=== PATIENT | female | born 1950 | race American Indian/Alaskan Native ===

== ENCOUNTER 2019-10-02 15:01 | Inpatient (IN) | payer MEDICARE ==
[2019-10-02] MEDS ORDERED: SODIUM CHLORIDE 0.9% 1000 ML 1,000 ML IV ONE (15:19)
--- NOTE | 2019-10-02 15:19 | Emergency Department Report ---
ED CPR HPI - General Stated Complaint: CARDIAC ARREST Time Seen by Provider: 10/02/19 15:14 Source: EMS Mode of arrival: Stretcher Limitations: Altered Mental Status, Physical Limitation - History of Present Illness Initial Comments: Patient is a 69-year-old female that presents emergency room in full cardiac arrest. Patient was at her vascular surgeon's office and was having a procedure done and was given fentanyl and Versed and went asystole. Patient was intubated at the vascular lab and brought to the ER via EMS. Chest compressions being done by EMS. MD Complaint: stopped breathing -: minute(s) Place: other Bystander CPR Performed: Yes Shock Advised: No Initial Findings in the Field: unresponsive, no respirations, no pulse ROSC in the Field: No Associated Injuries: No Treatments Prior to Arrival: intubation, BMV, chest compressions, epinephrine mgs # - Related Data Allergies Allergy/AdvReac Type Severity Reaction Status Date / Time Unable to Assess Allergy Unverified 10/02/19 15:47 ED Review of Systems ROS: Stated complaint: CARDIAC ARREST Other details as noted in HPI Comment: Unobtainable due to pts medical conditions ED Past Medical Hx - Past Medical History Previous Medical History?: Yes Hx Hypertension: Yes Hx Heart Attack/AMI: Yes Hx Diabetes: Yes - Surgical History Past Surgical History?: No - Family History Family history: no significant - Social History Smoking Status: Never Smoker Substance Use Type: None ED Physical Exam - General Limitations: Altered Mental Status, Physical Limitation General appearance: obtunded - Head Head exam: Present: atraumatic, normocephalic - Eye Eye exam: Present: normal appearance - ENT ENT exam: Present: mucous membranes dry - Neck Neck exam: Present: normal inspection - Respiratory Respiratory exam: Present: other - Cardiovascular Cardiovascular Exam: Present: regular rate - GI/Abdominal GI/Abdominal exam: Present: soft. Absent: distended, tenderness, guarding - Rectal Rectal exam: Present: deferred - Extremities Exam Extremities exam: Present: normal inspection - Back Exam Back exam: Present: normal inspection ( absolutely wanted of them would've) - Neurological Exam Neurological exam: Present: altered - Skin Skin exam: Present: warm, dry, intact, normal color. Absent: rash ED Course Vital Signs 10/02/19 10/02/19 10/02/19 15:37 16:14 16:16 Temperature Pulse Rate 107 H 88 125 H Respiratory 22 Rate Blood Pressure 110/68 70/44 70/43 O2 Sat by Pulse 100 99 96 Oximetry 10/02/19 10/02/19 10/02/19 16:20 16:25 16:30 Temperature Pulse Rate 117 H 99 H 96 H Respiratory 22 22 22 Rate Blood Pressure 153/88 96/56 90/54 O2 Sat by Pulse 96 97 97 Oximetry 10/02/19 10/02/19 10/02/19 16:36 16:40 16:42 Temperature 94.2 F L Pulse Rate 102 H 98 H Respiratory 22 22 Rate Blood Pressure 92/57 94/55 O2 Sat by Pulse 96 97 Oximetry 10/02/19 10/02/19 10/02/19 16:46 16:50 16:55 Temperature Pulse Rate 100 H 100 H 102 H Respiratory 22 22 22 Rate Blood Pressure 95/53 102/56 103/59 O2 Sat by Pulse 97 97 98 Oximetry 10/02/19 10/02/19 10/02/19 17:00 17:05 17:10 Temperature Pulse Rate 103 H 104 H 105 H Respiratory 22 22 22 Rate Blood Pressure 109/59 111/60 112/60 O2 Sat by Pulse 98 98 99 Oximetry 10/02/19 10/02/19 10/02/19 17:16 17:20 17:25 Temperature Pulse Rate 106 H 107 H 108 H Respiratory 20 22 19 Rate Blood Pressure 116/62 115/63 119/63 O2 Sat by Pulse 99 100 100 Oximetry 10/02/19 10/02/19 10/02/19 17:30 17:36 17:40 Temperature Pulse Rate 108 H 109 H 109 H Respiratory 19 15 23 Rate Blood Pressure 116/60 113/61 125/62 O2 Sat by Pulse 100 100 100 Oximetry 10/02/19 10/02/19 10/02/19 17:46 17:50 17:55 Temperature Pulse Rate 109 H 110 H 110 H Respiratory 22 17 19 Rate Blood Pressure 120/63 120/62 119/64 O2 Sat by Pulse 100 100 100 Oximetry 10/02/19 10/02/19 10/02/19 18:00 18:06 18:10 Temperature Pulse Rate 111 H 111 H 112 H Respiratory 15 14 14 Rate Blood Pressure 128/64 124/66 126/64 O2 Sat by Pulse 100 100 100 Oximetry 10/02/19 10/02/19 10/02/19 18:16 18:20 18:25 Temperature Pulse Rate 112 H 112 H 113 H Respiratory 16 14 13 Rate Blood Pressure 124/63 126/63 129/66 O2 Sat by Pulse 100 100 100 Oximetry 10/02/19 10/02/19 10/02/19 18:30 18:36 18:40 Temperature Pulse Rate 112 H 113 H 116 H Respiratory 14 14 11 L Rate Blood Pressure 131/65 129/71 137/65 O2 Sat by Pulse 100 100 100 Oximetry 10/02/19 10/02/19 10/02/19 18:46 18:50 18:55 Temperature Pulse Rate 115 H 115 H 116 H Respiratory 12 13 11 L Rate Blood Pressure 135/64 126/67 130/63 O2 Sat by Pulse 100 100 100 Oximetry 10/02/19 10/02/19 10/02/19 19:00 19:03 19:06 Temperature Pulse Rate 116 H 116 H 117 H Respiratory 11 L 13 Rate Blood Pressure 133/67 132/61 133/65 O2 Sat by Pulse 100 100 100 Oximetry 10/02/19 10/02/19 10/02/19 19:10 19:16 19:20 Temperature Pulse Rate 117 H 119 H 125 H Respiratory 11 L 11 L 9 L Rate Blood Pressure 136/67 130/65 130/61 O2 Sat by Pulse 100 100 100 Oximetry 10/02/19 10/02/19 10/02/19 19:25 19:30 19:35 Temperature Pulse Rate 119 H 121 H 120 H Respiratory 8 L 9 L 9 L Rate Blood Pressure 131/73 130/64 135/67 O2 Sat by Pulse 100 100 100 Oximetry 10/02/19 10/02/19 10/02/19 19:40 19:46 19:50 Temperature Pulse Rate 121 H 122 H 122 H Respiratory 9 L 9 L 9 L Rate Blood Pressure 141/64 138/73 131/68 O2 Sat by Pulse 100 100 100 Oximetry 10/02/19 10/02/19 10/02/19 19:55 20:00 20:06 Temperature Pulse Rate 122 H 122 H 123 H Respiratory 9 L 9 L 9 L Rate Blood Pressure 135/71 127/52 136/69 O2 Sat by Pulse 100 100 100 Oximetry 10/02/19 10/02/19 10/02/19 20:10 20:16 20:20 Temperature Pulse Rate 123 H 123 H 123 H Respiratory 9 L 10 L 9 L Rate Blood Pressure 130/66 145/66 142/69 O2 Sat by Pulse 100 100 100 Oximetry - Reevaluation(s) Reevaluation #1: Patient arrives via EMS. Report received from EMS. During initial evaluation, noted that the patient did have color change on capnography and sounds noted over the epigastrium. Patient was extubated and immediately reintubated. See procedure note for intubation. 6 code ran in accordance with ACLS guidelines. 10/02/19 15:00 Seco note. Patient had spontaneous return of circulation. Patient placed on a vent. Blood pressure stable. 10/02/19 15:09 Reevaluation #2: Patient found to be hypotensive. Patient still has a pulse. Patient will be placed on Levophed and a central line will be placed. See procedure note for central line. I discussed case with Dr. Monroy. Dr. monroy states that the patient was fine until she was given anesthesia and then she went to a symptomatic bradycardia and arrested. 10/02/19 15:50 Reevaluation #3: I discussed case with family. Family meeting done. All questions answered. Patient will be admitted to the ICU and to the hospitalist service. 10/02/19 16:59 - Consultations Consultation #1: Hospitalist consult for admission. Hospitalist to admit patient. 10/02/19 17:00 - Central Line Placement Right Femoral Consent Obtained: emergent situation Time Out Performed: Yes Patient Placed on Monitor/Pulse Ox: Yes MD Prep: mask, gown, gloves Central Line Prep: Chlorhexidine scrub, sterile drapes applied Ultrasound Used for Placement: Yes Central Line Lumen Inserted: triple Bloods Obtained for Lab: Yes Central Line Position: good blood return, all ports aspirated, flus, sutured in place with 2-0 Dressing Applied: Tegaderm Patient Tolerated Procedure: well, no complications Complications: none - EJ/Peripheral Line Neck R Time Out Performed: Yes Indications: multiple IV sites needed Skin Cleansed in Sterile Fashion: Yes Size: 18 Dressing Placed: Tegaderm, tape Patient Tolerated Procedure: well - Intubation Time Out Performed: Yes Sedative: none Laryngoscope: fiberoptic video scope Size: 4 Assist Device Used: fiberoptic device ET Tube Size: 7.5 Tube Secured Depth (cm): 22 Tube Secured Location: teeth Tube Placement Confirmation: visualized tube passing t, equal breath sounds bilat, no breath sounds over epi, confirmation by capnometr Patient Tolerated Procedure: well, no complications Intubation Complications: none ED Medical Decision Making - Lab Data Result diagrams: 10/02/19 15:42 10/02/19 15:42 - EKG Data -: EKG Interpreted by Me EKG shows normal: sinus rhythm, axis, intervals, QRS complexes, ST-T waves Rate: tachycardia - EKG Data Interpretation: LVH - Radiology Data Radiology results: report reviewed CHEST 1 VIEW INDICATION: cardiac arrest. COMPARISON: None FINDINGS: Support devices: An endotracheal tube terminates 4.6 cm superior to the camille. A nasogastric tube terminates in the mid to distal stomach. Cardiac defibrillator pads are in place. Heart: Within normal limits. Lungs/Pleura: No acute air space or interstitial disease. Additional findings: None. IMPRESSION: Adequate placement of lines and tubes. No acute process is identified in the chest. - Medical Decision Making Patient is a 69-year-old female that presents emergency room and a cardiac arrest. Patient was having a procedure and was given fentanyl and Versed and developed symptomatic bradycardia went into a cardiac arrest. Initial evaluation done and patient noted to have epigastric sounds, patient was ex tubated and reintubated. See procedure note. Patient had spontaneous return of circulation, see code note. Patient then found to be hypotensive and a central line was placed. Patient was placed on a Levophed drip. I discussed case with Dr. Monroy, vascular surgery was doing the procedure as an outpatient. Patient admitted to the hospitalist service. Family support given and family meeting done. Patient's labs are remarkable for lactic acidosis and respiratory acidosis. - Differential Diagnosis cardiac arrest, KS, anesthesia reaction, respiratory arrest, Critical Care Time: Yes Critical care time in (mins) excluding proc time.: 80 Critical care attestation.: If time is entered above; I have spent that time in minutes in the direct care of this critically ill patient, excluding procedure time. Critical Care Time: 80 minutes ED Disposition Clinical Impression: Cardiac arrest, Renal insufficiency, Respiratory acidosis, Lactic acid acidosis Hypotension Qualifiers: Hypotension type: unspecified hypotension type Qualified Code(s): I95.9 - Hypotension, unspecified Anemia Qualifiers: Anemia type: unspecified type Qualified Code(s): D64.9 - Anemia, unspecified Respiratory failure Qualifiers: Chronicity: acute Respiratory failure complication: hypoxia Qualified Code(s): J96.01 - Acute respiratory failure with hypoxia Disposition: DC-09 OP ADMIT IP TO THIS HOSP Is pt being admited?: Yes Does the pt Need Aspirin: No Condition: Critical Time of Disposition: 16:42
[2019-10-02] MEDS ORDERED: ASPIRIN 300 MG RECT SUPP PR ONE (15:21)
--- NOTE | 2019-10-02 15:44 | XRay Report ---
CHEST 1 VIEW INDICATION: cardiac arrest. COMPARISON: None FINDINGS: Support devices: An endotracheal tube terminates 4.6 cm superior to the camille. A nasogastric tube te rminates in the mid to distal stomach. Cardiac defibrillator pads are in place. Heart: Within normal limits. Lungs/Pleura: No acute air space or interstitial disease. Additional findings: None. IMPRESSION: Adequate placement of lines and tubes. No acute process is identified in the chest. Signer Name: Calixto Page Jr, MD Signed: 10/02/2019 3:40 PM Workstation Name: [id number]
[2019-10-02] MEDS ORDERED: NORepinephrine/NS 4 MG-250 ML 4 MG/250 ML BAG IV ONE (15:53)
[2019-10-02 15:55] LABS: Hematocrit 27.2 % (30.3-42.9); Hemoglobin 8.6 gm/dl (10.1-14.3); Mean Corpuscular HGB Conc 32 % (30-34); Mean Corpuscular Volume 90 fl (79-97); Platelet Count 254 K/mm3 (140-440); Red Blood Count 3.01 M/mm3 (3.65-5.03); Red Cell Distribution Width 16.3 % (13.2-15.2)
[2019-10-02 16:05] LABS: INR 1.25 (0.87-1.13)
[2019-10-02] MEDS: NORepinephrine/NS 4 MG-250 ML 4 MG/250 ML BAG IV SCH (16:10)
[2019-10-02 16:17] LABS: Alanine Aminotransferase 41 units/L (7-56); Albumin 2.8 g/dL (3.9-5); BUN/Creatinine Ratio 9; Blood Urea Nitrogen 15 mg/dL (7-17); Calcium 8.5 mg/dL (8.4-10.2); Hemolysis Index 33
[2019-10-02 16:29] LABS: Partial Thromboplastin Time 70.6 Sec. (24.2-36.6)
[2019-10-02 16:35] LABS: Basophils % (Manual) 0 % (0.0-1.8); Myelocytes # (Manual) 0.1 K/mm3; Total Cells Counted 100
[2019-10-02 16:37] LABS: Anisocytosis Few; Ovalocytes Few; Platelet Estimate Consistent w Auto
[2019-10-02] MEDS ORDERED: CEFEPIME/NS 2 GM/100 ML 2 GM/100 ML BAG IV ONE (16:58)
[2019-10-02] MEDS ORDERED: SODIUM CHLORIDE 0.9% 1000 ML 3,000 ML IV ONE (17:00)
[2019-10-02] MEDS ORDERED: ACETAMINOPHEN 650 MG RECT SUPP PR PRN (17:01)
[2019-10-02] MEDS ORDERED: SODIUM CHLORIDE 0.9% 1000 ML IV SOLN IV ONE (17:03)
[2019-10-02] MEDS ORDERED: SODIUM BICARB 8.4% 50 MEQ/50 ML SYRINGE IV ONE (17:05)
--- NOTE | 2019-10-02 17:05 | History and Physical Report ---
History of Present Illness Chief complaint: Unresponsive History of present illness: 69 YO Female with HTN, CA, DM, Obesity presents to ED for evaluation. Pt is intubated and on bent support at the time of my evaluation and is unable to provide history. Pt history taken from ED staff, and EMS. As per staff, the patient was seen by her vascular surgeon today and was about to undergo an elective procedure and was given conscious sedation medication and subsequently developed Asystole. Pt treated IAW with ACLS protocol. EMS notified, and upon arrival the patient was found to be in distress. Pt was intubated and tra nsported to [facility] while being treated IAW ACLS protocol. Pt seen and evaluated in ED and ACLS protocol was continued. Pt subsequently developed a perfusing cardiac rhythm. Pt placed on vent support and admitted to ICU. Pt found to have Encephalopathy, Metabolic Acidosis, Acute Hypoxemic Respiratory Failure, Sepsis, as well as LYNDSAY. Pt initiated on sepsis protocol. No prior admission for review. No medication listed at time of admission for reconciliation. QSofa Score:5. Past History Past Medical History: other (see HPI) Past Surgical History: No surgical history, Other (reviewed) Social history: , lives with family. denies: smoking, alcohol abuse, prescription drug abuse Family history: diabetes, hypertension Medications and Allergies Allergies Allergy/AdvReac Type Severity Reaction Status Date / Time Unable to Assess Allergy Unverified 10/02/19 15:47 Active Meds: Active Medications Acetaminophen (Tylenol) 650 mg MO Q6HR PRN PRN Reason: Fever >101 Famotidine (Pepcid) 20 mg IV BID TAURUS Norepinephrine (Levophed Drip 4 Mg/Ns 250 Ml) 4 mg in 250 mls @ 7.5 mls/hr IV TITR TAURUS; Protocol Cefepime HCl (Cefepime/Ns 2 Gm/100 Ml) 2 gm in 100 mls @ 200 mls/hr IV ONCE ONE; Protocol Stop: 10/02/19 17:27 Sodium Chloride (Sodium Chloride Flush Syringe 10 Ml) 10 ml IV BID TAURUS Sodium Chloride (Sodium Chloride Flush Syringe 10 Ml) 10 ml IV PRN PRN PRN Reason: LINE FLUSH Review of Systems ROS unobtainable: due to endotracheal tube Exam - Constitutional Vitals: Temp Pulse Resp BP Pulse Ox 94.2 F L 88 70/44 99 10/02/19 16:42 10/02/19 16:14 10/02/19 16:14 10/02/19 16:14 General appearance: Present: severe distress - EENT Eyes: Present: mydriasis ENT: hearing decreased - Neck Neck: Present: supple, normal ROM - Respiratory Respiratory effort: labored, accessory muscle use, stridor Respiratory: bilateral: diminished, rhonchi - Cardiovascular Heart Sounds: Present: S1 & S2. Absent: rub, click - Extremities Extremities: pulses symmetrical, No edema Peripheral Pulses: abnormal (thready, weak) - Integumentary Integumentary: Present: clear, dry, clammy, pale, decreased turgor - Musculoskeletal Musculoskeletal: generalized weakness - Psychiatric Psychiatric: no appropriate mood/affect, no intact judgment & insight, no memory intact - Neurologic Neurologic: no CNII-XII intact, no moves all extremities, no gait normal Results - Labs CBC & Chem 7: 10/02/19 15:42 10/02/19 15:42 Labs: Abnormal lab results 10/02/19 10/02/19 10/02/19 Range/Units 15:42 15:42 15:42 WBC 13.4 H (4.5-11.0) K/mm3 RBC 3.01 L (3.65-5.03) M/mm3 Hgb 8.6 L (10.1-14.3) gm/dl Hct 27.2 L (30.3-42.9) % RDW 16.3 H (13.2-15.2) % Seg Neuts % (Manual) 73.0 H (40.0-70.0) % Seg Neutrophils # Man 9.8 H (1.8-7.7) K/mm3 PT 15.9 H (12.2-14.9) Sec. INR 1.25 H (0.87-1.13) APTT 70.6 H* (24.2-36.6) Sec. POC ABG pH (7.35-7.45) POC ABG pCO2 (35-45) POC ABG pO2 (80-105) Potassium 3.3 L (3.6-5.0) mmol/L Carbon Dioxide 15 L (22-30) mmol/L Creatinine 1.7 H (0.7-1.2) mg/dL Glucose 258 H (65-100) mg/dL AST 89 H (5-40) units/L Total Creatine Kinase 139 H (30-135) units/L Total Protein 5.8 L (6.3-8.2) g/dL Albumin 2.8 L (3.9-5) g/dL 10/02/19 Range/Units 16:14 WBC (4.5-11.0) K/mm3 RBC (3.65-5.03) M/mm3 Hgb (10.1-14.3) gm/dl Hct (30.3-42.9) % RDW (13.2-15.2) % Seg Neuts % (Manual) (40.0-70.0) % Seg Neutrophils # Man (1.8-7.7) K/mm3 PT (12.2-14.9) Sec. INR (0.87-1.13) APTT (24.2-36.6) Sec. POC ABG pH 7.139 L (7.35-7.45) POC ABG pCO2 57.6 H (35-45) POC ABG pO2 292 H (80-105) Potassium (3.6-5.0) mmol/L Carbon Dioxide (22-30) mmol/L Creatinine (0.7-1.2) mg/dL Glucose (65-100) mg/dL AST (5-40) units/L Total Creatine Kinase (30-135) units/L Total Protein (6.3-8.2) g/dL Albumin (3.9-5) g/dL Assessment and Plan - Patient Problems (1) Sepsis Status: Acute Qualifiers: Sepsis acute organ dysfunction status: with acute organ dysfunction Plan to address problem: Sepsis protocol: Admit to ICU, IVF resuscitation therapy, IV antibiotic therapy, CBC, CMP, CHest x ray, blood cultures, IV pressor support to maintain MAP grater than 60, serial lactic acid. The high probability of a clinically significant, sudden or life threatening deterioration of the [neuro, cardiac, renal, respiratory] system(s) required my full and direct attention, intervention and personal management. The aggregate critical care time was [95] minutes. This time is in addition to time spent performing reported procedures but includes the following: [x] Data Review and interpretation [x] Patient assessment and monitoring of vital signs [x] Documentation [x] Medication orders and management (2) Respiratory failure Status: Acute Qualifiers: Chronicity: acute Respiratory failure complication: hypoxia Qualified Code(s): J96.01 - Acute respiratory failure with hypoxia Plan to address problem: Pt intubated, sedated on vent support: wean vent as tolerated, daily ABG, Daily SBT, Sedation holiday, chest x ray in AM. (3) Metabolic encephalopathy Status: Acute Plan to address problem: CT head when medically stable, neuro check, supportive care. (4) Acidosis Status: Acute Plan to address problem: IV bicarbonate therapy, serial bmp, supportive care, serial lactic acid level. (5) Cardiac arrest Status: Acute Plan to address problem: Pt treated IAW ACLS protocol with return of perfusing cardiac rhythm, supportive care. (6) Advance care planning Status: Acute Plan to address problem: Pt is full code. +30 min, Pt has poor prognosis. Pt family acknowledge understanding and agreement with care plan. (7) Anoxic brain injury Status: Suspected Plan to address problem: Pupils fixed and dilated, CT head when stable. neuro check. supportive care. (8) LYNDSAY (acute kidney injury) Status: Acute Plan to address problem: IVF resuscitation therapy, monitor uop q shift, avoid nephrotoxic agents, repeat bmp to monitor serum creatnine. (9) DVT prophylaxis Status: Acute Plan to address problem: SCD to BLE while in bed,
[2019-10-02 17:41] LABS: Creatine Kinase MB 4.1 ng/mL (0.0-4.0)
[2019-10-02 18:16] LABS: Chol/HDL Ratio 2.5 %
--- NOTE | 2019-10-02 18:25 | Event Note ---
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 She was scheduled for a diagnostic angiogram through a left radial approach. No issues with access and the wire passed into the descending aorta without issue. The abdominal aorta was selected and the left lower extremity was then selected and CO2 angiography was performed, with the intent of then evaluating the right lower extremity. Nurse anesthesia provided versed, fentanyl and propofol. Unfortunately, the patient developed symptomatic bradycardia with HR of the 20- 30s and hypotension and this was treated with atropine x 3 without correction of bradycardia. Narcan and flumazenil was provided. Code was called and EMS was contacted and patient was administered epinephrine, advanced airway was placed, and pacing pads were placed on the patient. The left radial TR band was removed and a pressure dressing was applied with instructions to remove in 2 hrs. Unclear the reason for the symptomatic bradycardia. Patient did not lose pulse or become hypoxic during procedure or at time of handoff to EMS.
[2019-10-02] MEDS ORDERED: SODIUM CHLORIDE 0.9% 1000 ML 3,000 ML ONE (22:59)
[2019-10-02] MEDS: FAMOTIDINE 20 MG/2 ML INJ IV SCH (23:05)
[2019-10-02] MEDS ORDERED: FAMOTIDINE 20 MG/2 ML INJ IV ONE (23:12)
[2019-10-03] MEDS ORDERED: NORepinephrine/NS 4 MG-250 ML 4 MG/250 ML BAG IV ONE (01:13)
[2019-10-03 01:38] LABS: ABG Base Excess -13.6 mmol/L (-2.0-3.0); ABG HCO3 13.5 mmol/L (20.0-26.0); ABG Methemoglobin 0.4 % (0.0-1.5); ABG Oxygen Saturation 98.3 % (95.0-99.0); ABG PCO2 35.9 mm Hg; ABG PO2 137.8 mm Hg (80.0-90.0)
[2019-10-03 01:47] LABS: ABG PH 7.193 pH Units (7.350-7.450)
[2019-10-03 04:23] LABS: Hematocrit 26.3 % (30.3-42.9); Hemoglobin 8.4 gm/dl (10.1-14.3); Mean Corpuscular HGB Conc 32 % (30-34); Mean Corpuscular Volume 90 fl (79-97); Platelet Count 269 K/mm3 (140-440); Red Blood Count 2.93 M/mm3 (3.65-5.03); Red Cell Distribution Width 16.3 % (13.2-15.2)
[2019-10-03 04:50] LABS: Albumin 2.8 g/dL (3.9-5); Calcium 7.6 mg/dL (8.4-10.2)
[2019-10-03 05:18] LABS: Basophils % (Manual) 0 % (0.0-1.8); Eosinophils % (Manual) 0 % (0.0-4.3); Total Cells Counted 100
[2019-10-03 05:19] LABS: Anisocytosis 1+; Ovalocytes Few; Platelet Estimate Consistent w Auto
[2019-10-03] MEDS: NORepinephrine/NS 4 MG-250 ML 4 MG/250 ML BAG IV SCH ×3 (11:46→19:12)
[2019-10-03] MEDS ORDERED: FAMOTIDINE 20 MG/2 ML INJ IV SCH (12:00)
--- NOTE | 2019-10-03 12:42 | Consultation ---
History of Present Illness - History of Present Illness My assessment and plan are as follows Acute kidney injury patient is high risk for acute tubular necrosis currently her creatinine is increasing 2.4 which was 1.7 yesterday she has severe metabolic acidosis but improving there is no emergent indication for renal placement therapy continue with supportive care will obtain renal imaging follow-up serial labs, we will also obtain renal ultrasonogram patient does have risk factors for underlying chronic kidney disease due to aging underlying cardiovascular disease which also makes her high risk for renal vascular disease as well Care plan was discussed with family member at the bedside Sai As of today white cell count is 17.3 thousand hemoglobin 8.4 relatively stable platelet count 269,000 Severe acidosis but currently intubated is being followed by pulmonary medicine Severe lactic acidosis, creatinine is currently 2.4 which was 1.7 yesterday lactic acid peaked at 12.3 currently 9.3 continue with hydration and oxygenation supportive care Abnormal troponin in the history of prior coronary artery disease cannot rule out any possibility of, myocardial infarction she's being followed by cardiology also this is in the post-ACLS setting Hypokalemia: Mild currently corrected potassium was 3.3 currently 4.9 If you have any questions feel free to reach us at [phone] Dc Arreola M.D. [facility] [address] [place] [address] History of presenting illness Patient is 69-year-old female who has been admitted here with cardiac arrest she was at vascular surgeon's office for procedure and was given fentanyl and Versed and subsequently patient went in asystole she was intubated resuscitated and was admitted to ICU she is currently unresponsive but comfortable does not appear to be any acute distress Also discussed with patient's daughter was currently not available but I did discuss with her over the phone Past medical history significant for Hypertension Myocardial infarction Diabetes mellitus type 2 Chronic lymphedema being followed by vascular surgery Current allergies: Unable to assess Social history: lives with her family no history of any alcohol drug tobacco use Family history is positive for hypertension and diabetes Current list of medication verified home medication currently not known Review of systems Limited due to intubated status recently has had arrest resuscitated currently intubated All other review of systems were negative but limited due to above Physical examination: General: No acute distress HEENT: Oral mucosa moist no icterus, no facial swelling Neck: Supple no thyromegaly no lymphadenopathy no JVD Chest: Clear to auscultation no crackles rales or wheezes Heart: Regular rate and rhythm S1-S2 heard no S3-S4 Abdomen: Soft nontender no organomegaly no masses palpable no renal bruit no suprapubic masses no CVA tenderness Dermatology: No skin rashes noted Extremity: Less than 1+ peripheral edema, dry skin no petechial rashes Musculoskeletal: No joint effusion noted in knee and ankle area Psych: No evidence of agitation and aggression noted Neurological: Patient is status post cardiac arrest currently intubated resting comfortably Back: No CVA tenderness Past History Past Medical History: other (see HPI) Past Surgical History: No surgical history, Other (reviewed) Social history: , lives with family. denies: smoking, alcohol abuse, prescription drug abuse Family history: diabetes, hypertension Medications and Allergies Allergies Allergy/AdvReac Type Severity Reaction Status Date / Time Unable to Assess Allergy Unverified 10/02/19 15:47 Active Meds: Active Medications Acetaminophen (Tylenol) 650 mg ND Q6HR PRN PRN Reason: Fever >101 Famotidine (Pepcid) 20 mg IV DAILY TAURUS Norepinephrine (Levophed Drip 4 Mg/Ns 250 Ml) 4 mg in 250 mls @ 7.5 mls/hr IV TITR TAURUS; Protocol Last Titration: 10/03/19 12:15 Dose: 12 mcg/min, 45 mls/hr Documented by: Levofloxacin/Dextrose (Levaquin 750mg/150ml) 750 mg in 150 mls @ 100 mls/hr IV Q48HR TAURUS; Protocol Last Admin: 10/03/19 12:28 Dose: 100 mls/hr Documented by: Sodium Chloride (Sodium Chloride Flush Syringe 10 Ml) 10 ml IV BID TAURUS Last Admin: 10/02/19 22:10 Dose: 10 ml Documented by: Sodium Chloride (Sodium Chloride Flush Syringe 10 Ml) 10 ml IV PRN PRN PRN Reason: LINE FLUSH Exam - Vital Signs Vital signs: Vital Signs Pulse BP Pulse Ox 107 H 110/68 100 10/02/19 15:37 10/02/19 15:37 10/02/19 15:37 Results - Lab Results 10/03/19 04:05 10/03/19 04:05 Most recent lab results ABG pH 7.193 pH Units (7.350-7.450) L* 10/03/19 01:15 ABG pCO2 35.9 mm Hg 10/03/19 01:15 ABG pO2 137.8 mm Hg (80.0-90.0) H 10/03/19 01:15 ABG HCO3 13.5 mmol/L (20.0-26.0) L 10/03/19 01:15 ABG O2 Saturation 98.3 % (95.0-99.0) 10/03/19 01:15 Calcium 7.6 mg/dL (8.4-10.2) L 10/03/19 04:05
--- NOTE | 2019-10-03 12:57 | Event Note ---
Date: 10/03/19 Patient had a cardiac arrest. Standard ACLS interventions were performed. After aggressive CPR and appropriate medications we have return of spontaneous circulation. Patient remains in a coma. Please see nursing flow sheet for specific medications. Patient now in a wide complex rhythm, suggestive of ventricular tachycardia. She remains in a coma. Contacted her managing physician, Dr. Chayo Emerson, who requests amiodarone. She was updated on the patient's condition. Prognosis appears to be quite poor. Please note that this hospital does not have a postarrest hypothermia protocol in place. I will defer postarrest management to the primary team.
--- NOTE | 2019-10-03 13:21 | Progress Note ---
Assessment and Plan Assessment and plan: -- Cardiac arrest Status: Acute s/p CRR per ACLS protocol Refer to code sheets Continue ventilatory support --H/O CAD s/p PCI Continue appropriate cardiac medications, cardiology following, echocardiogram for LV function --Non-ST elevation MS; Management per cardiology --Acute hypoxic respiratory failure Status: Acute Status post intubation on mechanical ventilation . Continue nebulizers and supportive care. --Severe GI bleeding : Status: Acute N.p.o., IV Protonix, GI consult Closely monitor H&H, transfuse as needed --Possible anoxic brain injury Status: Acute CT head, neurology consult, EEG --Metabolic acidosis Status: Acute IV bicarbonate therapy, serial bmp, supportive care, serial lactic acid level. --Sepsis/lactic acidosis Status: Acute Follow cultures, empiric antibiotics --LYNDSAY (acute kidney injury) Status: Acute Vasomotor nephropathy , prerenal. IVF resuscitation therapy, avoid nephrotoxins, Monitor renal function , nephrology consult -- Advance care planning Status: Acute Full CODE STATUS -- DVT prophylaxis Status: Acute SCD to BLE while in bed, Patient is critically ill, with very poor prognosis possible severe anoxic encephalopathy Family aware of patient's condition and the poor prognosis Critical care time 50 minutes History Interval history: 69 YO Female with HTN, CAD status post PCI, DM, Obesity was at an outside facility about to undergo an elective vascular procedure, as per medical records Received sedation and suddenly became bradycardic, patient did not lose pulse, at some point had asystole, intubated, cardiac arrest status post CPR per ACLS protocol, is currently intubated on ventilatory support Hypotensive requiring vasopressors, severe GI bleeding through oral gastric tube Patient is not sedated and is unresponsive. Medical records, overnight events reviewed Vital signs noted. Hospitalist Physical - Constitutional Vitals: Temp Pulse Resp BP Pulse Ox 99.6 F 96 H 30 H 136/67 100 10/03/19 11:00 10/03/19 12:27 10/03/19 12:27 10/03/19 12:27 10/03/19 12:27 General appearance: Present: severe distress, well-nourished, other (Intubated on vent, ) - Neck Neck: Present: supple, other (ET tube and oral gastric tube in place) - Respiratory Respiratory effort: labored Respiratory: bilateral: diminished, rhonchi, negative: rales, wheezing - Cardiovascular Rhythm: regular Heart Sounds: Present: S1 & S2 - Extremities Extremities: no ischemia, No edema - Abdominal General gastrointestinal: soft, non-tender, non-distended, normal bowel sounds - Integumentary Integumentary: Present: clear, warm - Psychiatric Psychiatric: other (Unresponsive) - Neurologic Neurologic: other (Unresponsive) Results - Labs CBC & Chem 7: 10/03/19 04:05 10/03/19 04:05 Labs: Laboratory Last Values WBC 17.3 K/mm3 (4.5-11.0) H 10/03/19 04:05 RBC 2.93 M/mm3 (3.65-5.03) L 10/03/19 04:05 Hgb 8.4 gm/dl (10.1-14.3) L 10/03/19 04:05 Hct 26.3 % (30.3-42.9) L 10/03/19 04:05 MCV 90 fl (79-97) 10/03/19 04:05 MCH 29 pg (28-32) 10/03/19 04:05 MCHC 32 % (30-34) 10/03/19 04:05 RDW 16.3 % (13.2-15.2) H 10/03/19 04:05 Plt Count 269 K/mm3 (140-440) 10/03/19 04:05 Add Manual Diff Complete 10/03/19 04:05 Total Counted 100 10/03/19 04:05 Seg Neutrophils % Claim Review Medical Director 10/03/19 04:05 Seg Neuts % (Manual) 96.0 % (40.0-70.0) H 10/03/19 04:05 Band Neutrophils % 0 % 10/03/19 04:05 Lymphocytes % (Manual) 2.0 % (13.4-35.0) L 10/03/19 04:05 Reactive Lymphs % (Man) 0 % 10/03/19 04:05 Monocytes % (Manual) 2.0 % (0.0-7.3) 10/03/19 04:05 Eosinophils % (Manual) 0 % (0.0-4.3) 10/03/19 04:05 Basophils % (Manual) 0 % (0.0-1.8) 10/03/19 04:05 Metamyelocytes % 0 % 10/03/19 04:05 Myelocytes % 0 % 10/03/19 04:05 Promyelocytes % 0 % 10/03/19 04:05 Blast Cells % 0 % 10/03/19 04:05 Nucleated RBC % Not Reportable 10/03/19 04:05 Seg Neutrophils # Man 16.6 K/mm3 (1.8-7.7) H 10/03/19 04:05 Band Neutrophils # 0.0 K/mm3 10/03/19 04:05 Lymphocytes # (Manual) 0.3 K/mm3 (1.2-5.4) L 10/03/19 04:05 Abs React Lymphs (Man) 0.0 K/mm3 10/03/19 04:05 Monocytes # (Manual) 0.3 K/mm3 (0.0-0.8) 10/03/19 04:05 Eosinophils # (Manual) 0.0 K/mm3 (0.0-0.4) 10/03/19 04:05 Basophils # (Manual) 0.0 K/mm3 (0.0-0.1) 10/03/19 04:05 Metamyelocytes # 0.0 K/mm3 10/03/19 04:05 Myelocytes # 0.0 K/mm3 10/03/19 04:05 Promyelocytes # 0.0 K/mm3 10/03/19 04:05 Blast Cells # 0.0 K/mm3 10/03/19 04:05 WBC Morphology Not Reportable 10/03/19 04:05 Hypersegmented Neuts Not Reportable 10/03/19 04:05 Hyposegmented Neuts Not Reportable 10/03/19 04:05 Hypogranular Neuts Not Reportable 10/03/19 04:05 Smudge Cells Not Reportable 10/03/19 04:05 Toxic Granulation Not Reportable 10/03/19 04:05 Toxic Vacuolation Not Reportable 10/03/19 04:05 Dohle Bodies Not Reportable 10/03/19 04:05 Pelger-Huet Anomaly Not Reportable 10/03/19 04:05 Wally Rods Not Reportable 10/03/19 04:05 Platelet Estimate Consistent w auto 10/03/19 04:05 Clumped Platelets Not Reportable 10/03/19 04:05 Plt Clumps, EDTA Not Reportable 10/03/19 04:05 Large Platelets Not Reportable 10/03/19 04:05 Giant Platelets Not Reportable 10/03/19 04:05 Platelet Satelliting Not Reportable 10/03/19 04:05 Plt Morphology Comment Not Reportable 10/03/19 04:05 RBC Morphology Not Reportable 10/03/19 04:05 Dimorphic RBCs Not Reportable 10/03/19 04:05 Polychromasia Not Reportable 10/03/19 04:05 Hypochromasia Not Reportable 10/03/19 04:05 Poikilocytosis Not Reportable 10/03/19 04:05 Anisocytosis 1+ 10/03/19 04:05 Microcytosis Not Reportable 10/03/19 04:05 Macrocytosis Not Reportable 10/03/19 04:05 Spherocytes Not Reportable 10/03/19 04:05 Pappenheimer Bodies Not Reportable 10/03/19 04:05 Sickle Cells Not Reportable 10/03/19 04:05 Target Cells Not Reportable 10/03/19 04:05 Tear Drop Cells Not Reportable 10/03/19 04:05 Ovalocytes Few 10/03/19 04:05 Helmet Cells Not Reportable 10/03/19 04:05 Lozano-Vandemere Bodies Not Reportable 10/03/19 04:05 [place] Rings Not Reportable 10/03/19 04:05 Diamond Cells Not Reportable 10/03/19 04:05 Bite Cells Not Reportable 10/03/19 04:05 Crenated Cell Not Reportable 10/03/19 04:05 Elliptocytes Few 10/03/19 04:05 Acanthocytes (Spur) Not Reportable 10/03/19 04:05 Rouleaux Not Reportable 10/03/19 04:05 Hemoglobin C Crystals Not Reportable 10/03/19 04:05 Schistocytes Not Reportable 10/03/19 04:05 Malaria parasites Not Reportable 10/03/19 04:05 Magnus Bodies Not Reportable 10/03/19 04:05 Hem Pathologist Commnt No 10/03/19 04:05 PT 15.9 Sec. (12.2-14.9) H 10/02/19 15:42 INR 1.25 (0.87-1.13) H 10/02/19 15:42 APTT 70.6 Sec. (24.2-36.6) H* 10/02/19 15:42 POC ABG pH 7.312 (7.35-7.45) L 10/02/19 19:07 ABG pH 7.193 pH Units (7.350-7.450) L* 10/03/19 01:15 POC ABG pCO2 33.2 (35-45) L 10/02/19 19:07 ABG pCO2 35.9 mm Hg 10/03/19 01:15 POC ABG pO2 66 (80-105) L 10/02/19 19:07 ABG pO2 137.8 mm Hg (80.0-90.0) H 10/03/19 01:15 POC ABG HCO3 16.8 (22-26 mml/L) 10/02/19 19:07 ABG HCO3 13.5 mmol/L (20.0-26.0) L 10/03/19 01:15 POC ABG Total CO2 18 (23-27mmol/L) 10/02/19 19:07 POC ABG O2 Sat 91 10/02/19 19:07 ABG O2 Saturation 98.3 % (95.0-99.0) 10/03/19 01:15 ABG O2 Content 12.2 (0.0-44) 10/03/19 01:15 POC ABG Base Excess -9 ((-2) - (+3)mmol/L) 10/02/19 19:07 ABG Base Excess -13.6 mmol/L (-2.0-3.0) L 10/03/19 01:15 ABG Hemoglobin 8.7 gm/dl (12.0-16.0) L 10/03/19 01:15 ABG Carboxyhemoglobin 1.2 % (0.0-5.0) 10/03/19 01:15 ABG Methemoglobin 0.4 % (0.0-1.5) 10/03/19 01:15 Oxyhemoglobin 96.8 % (95.0-99.0) 10/03/19 01:15 FiO2 65 % 10/03/19 01:15 Sodium 143 mmol/L (137-145) 10/03/19 04:05 Potassium 4.9 mmol/L (3.6-5.0) D 10/03/19 04:05 Chloride 106.8 mmol/L (98-107) 10/03/19 04:05 Carbon Dioxide 18 mmol/L (22-30) L 10/03/19 04:05 Anion Gap 23 mmol/L 10/03/19 04:05 BUN 25 mg/dL (7-17) H 10/03/19 04:05 Creatinine 2.4 mg/dL (0.7-1.2) H 10/03/19 04:05 Estimated GFR 24 ml/min 10/03/19 04:05 BUN/Creatinine Ratio 10 % 10/03/19 04:05 Glucose 319 mg/dL (65-100) H 10/03/19 04:05 Lactic Acid 9.30 mmol/L (0.7-2.0) H* 10/03/19 04:05 Calcium 7.6 mg/dL (8.4-10.2) L 10/03/19 04:05 Total Bilirubin 0.30 mg/dL (0.1-1.2) 10/03/19 04:05 AST 152 units/L (5-40) H 10/03/19 04:05 ALT 63 units/L (7-56) H 10/03/19 04:05 Alkaline Phosphatase 63 units/L (35-129) 10/03/19 04:05 Total Creatine Kinase 342 units/L (30-135) H 10/02/19 22:30 CK-MB (CK-2) 16.0 ng/mL (0.0-4.0) H 10/02/19 22:30 CK-MB (CK-2) Rel Index 4.6 (0-4) H 10/02/19 22:30 Troponin T 0.673 ng/mL (0.00-0.029) H* D 10/02/19 22:30 Total Protein 5.7 g/dL (6.3-8.2) L 10/03/19 04:05 Albumin 2.8 g/dL (3.9-5) L 10/03/19 04:05 Albumin/Globulin Ratio 1.0 % 10/03/19 04:05 Triglycerides 85 mg/dL (2-149) 10/02/19 17:07 Cholesterol 115 mg/dL (50-199) 10/02/19 17:07 LDL Cholesterol Direct 75 mg/dL (50-130) 10/02/19 17:07 HDL Cholesterol 46 mg/dL (40-59) 10/02/19 17:07 Cholesterol/HDL Ratio 2.50 % 10/02/19 17:07 Blood Type O POSITIVE 10/02/19 15:42 Antibody Screen Negative 10/02/19 15:42 Active Medications - Current Medications Current Medications: Generic Name Dose Route Start Last Admin Trade Name Freq PRN Reason Stop Dose Admin Acetaminophen 650 mg 10/02/19 17:01 Tylenol NE Q6HR PRN Fever >101 Famotidine 20 mg 10/03/19 12:00 Pepcid IV DAILY TAURUS Norepinephrine 4 mg in 250 mls @ 7.5 mls/hr 10/02/19 17:00 10/03/19 12:15 Levophed Drip 4 Mg/Ns 250 Ml IV 12 mcg/min TITR TAURUS 45 mls/hr Titration Protocol 2 MCG/MIN Levofloxacin/Dextrose 750 mg in 150 mls @ 100 mls/hr 10/03/19 10:00 10/03/19 12:28 Levaquin 750mg/150ml IV 100 mls/hr Q48HR TAURUS Administration Protocol Amiodarone HCl 900 mg/ 500 mls @ 33.333 mls/hr 10/03/19 14:00 Dextrose IV DIRECT TAURUS Protocol 1 MG/MIN Amiodarone HCl 150 mg/ 100 mls @ 600 mls/hr 10/03/19 13:55 Dextrose IV 10/03/19 14:04 ONCE ONE Sodium Chloride 10 ml 10/02/19 22:00 10/02/19 22:10 Sodium Chloride Flush Syringe 10 Ml IV 10 ml BID TAURUS Administration Sodium Chloride 10 ml 10/02/19 17:01 Sodium Chloride Flush Syringe 10 Ml IV PRN PRN LINE FLUSH
[2019-10-03] MEDS ORDERED: SODIUM BICARB 4.2% 5 MEQ/10 ML SYRINGE ONE (13:40)
[2019-10-03] MEDS ORDERED: SODIUM BICARB 8.4% 50 MEQ/50 ML SYRINGE IV ONE ×3 (13:45→14:00)
--- NOTE | 2019-10-03 13:54 | Consultation ---
History of Present Illness Consult date: 10/03/19 Consult reason: cardiac arrest History of present illness: This is a 69-year old woman who is admitted with out of the hospital PEA arrest. There was wide complex tachycardia, following several rounds of epinephrine, consistent with SVT. Post resuscitation ECG is sinus rhythm with left axis deviation and left bundle branch block. No acute ischemic changes. She is currently intubated, unresponsive on the vent with no sedation and on pressors for support. There is also upper GI bleeding. Noted multiple metabolic abnormalities. Head CT scan is pending. Patient is known to [facility] and has a history of coronary artery disease status post PCI of the LAD in 2016. Review of records shows she is on Effient and low dose aspirin. Her latest echocardiogram done in November, shows a normal left ventricular systolic function, EF 55%. Past History Past Medical History: other (see HPI) Past Surgical History: No surgical history, Other (reviewed) Social history: , lives with family. denies: smoking, alcohol abuse, prescription drug abuse Family history: diabetes, hypertension Medications and Allergies Allergies Allergy/AdvReac Type Severity Reaction Status Date / Time Unable to Assess Allergy Unverified 10/02/19 15:47 Active Meds: Active Medications Acetaminophen (Tylenol) 650 mg [place] Q6HR PRN PRN Reason: Fever >101 Famotidine (Pepcid) 20 mg IV DAILY TAURUS Norepinephrine (Levophed Drip 4 Mg/Ns 250 Ml) 4 mg in 250 mls @ 7.5 mls/hr IV TITR TAURUS; Protocol Last Titration: 10/03/19 13:26 Dose: 16 mcg/min, 60 mls/hr Documented by: Levofloxacin/Dextrose (Levaquin 750mg/150ml) 750 mg in 150 mls @ 100 mls/hr IV Q48HR TAURUS; Protocol Last Admin: 10/03/19 12:28 Dose: 100 mls/hr Documented by: Amiodarone HCl 900 mg/ (Dextrose) 500 mls @ 33.333 mls/hr IV DIRECT TAURUS; Protocol Amiodarone HCl 150 mg/ (Dextrose) 100 mls @ 600 mls/hr IV ONCE ONE Stop: 10/03/19 14:04 Last Admin: 10/03/19 13:30 Dose: 600 mls/hr Documented by: Sodium Bicarbonate 150 meq/ (Sterile Water) 1,150 mls @ 150 mls/hr IV DIRECT TAURUS Vasopressin 20 unit/ Sodium (Chloride) 101 mls @ 9.09 mls/hr IV TITR ATURUS; Protocol Sodium Bicarbonate (Sodium Bicarbonate 50meq Syringe) 100 meq IV ONCE ONE Stop: 10/03/19 14:01 Last Admin: 10/03/19 13:45 Dose: 100 meq Documented by: Sodium Chloride (Sodium Chloride Flush Syringe 10 Ml) 10 ml IV BID TAURUS Last Admin: 10/02/19 22:10 Dose: 10 ml Documented by: Sodium Chloride (Sodium Chloride Flush Syringe 10 Ml) 10 ml IV PRN PRN PRN Reason: LINE FLUSH Physical Examination Vital Signs Pulse BP Pulse Ox 107 H 110/68 100 10/02/19 15:37 10/02/19 15:37 10/02/19 15:37 General appearance: other (unresponsive on the vent) Cardiac: Positive: Reg Rate and Rhythm Results 10/03/19 04:05 10/03/19 04:05 Cardiac Enzymes 10/02/19 10/02/19 10/02/19 Range/Units 15:42 17:07 22:30 AST 89 H (5-40) units/L CK-MB (CK-2) 2.0 4.1 H 16.0 H (0.0-4.0) ng/mL 10/03/19 Range/Units 04:05 AST 152 H (5-40) units/L CK-MB (CK-2) (0.0-4.0) ng/mL Coagulation 10/02/19 Range/Units 15:42 PT 15.9 H (12.2-14.9) Sec. INR 1.25 H (0.87-1.13) APTT 70.6 H* (24.2-36.6) Sec. Lipids 10/02/19 Range/Units 17:07 Triglycerides 85 (2-149) mg/dL Cholesterol 115 (50-199) mg/dL HDL Cholesterol 46 (40-59) mg/dL Cholesterol/HDL Ratio 2.50 % CBC 10/02/19 10/03/19 Range/Units 15:42 04:05 WBC 13.4 H 17.3 H (4.5-11.0) K/mm3 RBC 3.01 L 2.93 L (3.65-5.03) M/mm3 Hgb 8.6 L 8.4 L (10.1-14.3) gm/dl Hct 27.2 L 26.3 L (30.3-42.9) % Plt Count 254 269 (140-440) K/mm3 Comprehensive Metabolic Panel 10/02/19 10/03/19 Range/Units 15:42 04:05 Sodium 140 143 (137-145) mmol/L Potassium 3.3 L 4.9 D (3.6-5.0) mmol/L Chloride 99.1 106.8 (98-107) mmol/L Carbon Dioxide 15 L 18 L (22-30) mmol/L BUN 15 25 H (7-17) mg/dL Creatinine 1.7 H 2.4 H (0.7-1.2) mg/dL Glucose 258 H 319 H (65-100) mg/dL Calcium 8.5 7.6 L (8.4-10.2) mg/dL AST 89 H 152 H (5-40) units/L ALT 41 63 H (7-56) units/L Alkaline Phosphatase 66 63 (35-129) units/L Total Protein 5.8 L 5.7 L (6.3-8.2) g/dL Albumin 2.8 L 2.8 L (3.9-5) g/dL
[2019-10-03] MEDS ORDERED: AMIODARONE 150 MG in DEXTROSE 5% IN WATER 97 ML IV ONE (13:55)
--- NOTE | 2019-10-03 13:59 | Event Note ---
Date: 10/03/19 PEA cardiac arrest after administration of moderate sedation for peripheral vascular procedure, requiring several rounds of epinephrine and bicarbonate. Wide complex rhythm at the time of ROSC consistent with extreme SVT and aberrancy - there is no evidence of VT (QRS axis never changed from baseline ECG). Anoxic encaphalopathy Acute respiratory failure Acute renal failure Severe metabolic/lactic acidosis Massive GI bleeding History of coronary artery disease s/p PCI to LAD x 2 in 2015, on DAPT (asa and effient at home) Echo 11/2018 - LVEF 55% Recommendations: Aggressive fluid and blood resuscitation In order to reverse effient, platelet transfusion is needed No need to start amiodarone infusion Stat echocardiogram is ordered Prognosis is guarded
[2019-10-03] MEDS ORDERED: AMIODARONE 900 MG in DEXTROSE 5% IN WATER 482 ML IV SCH (14:00)
[2019-10-03] MEDS ORDERED: VASOPRESSIN 20 UNIT in SODIUM CHLORIDE 0.9% 100 ML IV SCH (14:00)
--- NOTE | 2019-10-03 14:06 | Consultation ---
History of Present Illness Consult date: 10/03/19 Requesting physician: BRANDO MURPHY Reason for consult: other (post cardiac arrest, acute respiratory failure.) History of present illness: 69 y/o female who was at an outside facility having the start of vascular procedure when based on the documentation, experienced bradycardia after sedation was administered. Per report, patient did not loose pulse in hand off to EMS. Per ED notes, patient had asystole as some point and was in cardiac arrest upon arrival to the ED. Per the documentation this was PEA. This all happened on 10/02/19. We were consulted this am (10/03/19) for help with management. Patient is completely unresponsive, not on sedation and not breathing over the vent. She has a large amount of dark/black gastric contents in the the OG tube. She is hypotensive on levophed and acidotic, from a metabolic standpoint. The patient has known cardiac disease with stents, hypertension, diabetes, hyperlipidemia and acid reflux. Family is in the ICU waiting room. Past History Past Medical History: CAD, diabetes, hypertension, hyperlipidemia, PVD Past Surgical History: Other (Cath with stent placement) Social history: , lives with family. denies: smoking, alcohol abuse, prescription drug abuse Family history: diabetes, hypertension Medications and Allergies Allergies Allergy/AdvReac Type Severity Reaction Status Date / Time Unable to Assess Allergy Unverified 10/02/19 15:47 Active Meds: Active Medications Acetaminophen (Tylenol) 650 mg [place] Q6HR PRN PRN Reason: Fever >101 Famotidine (Pepcid) 20 mg IV DAILY TAURUS Norepinephrine (Levophed Drip 4 Mg/Ns 250 Ml) 4 mg in 250 mls @ 7.5 mls/hr IV TITR TAURUS; Protocol Last Titration: 10/03/19 13:26 Dose: 16 mcg/min, 60 mls/hr Documented by: Levofloxacin/Dextrose (Levaquin 750mg/150ml) 750 mg in 150 mls @ 100 mls/hr IV Q48HR TAURUS; Protocol Last Admin: 10/03/19 12:28 Dose: 100 mls/hr Documented by: Sodium Bicarbonate 150 meq/ (Sterile Water) 1,150 mls @ 150 mls/hr IV DIRECT TAURUS Vasopressin 20 unit/ Sodium (Chloride) 101 mls @ 9.09 mls/hr IV TITR TAURUS; Protocol Sodium Chloride (Sodium Chloride Flush Syringe 10 Ml) 10 ml IV BID TAURUS Last Admin: 10/02/19 22:10 Dose: 10 ml Documented by: Sodium Chloride (Sodium Chloride Flush Syringe 10 Ml) 10 ml IV PRN PRN PRN Reason: LINE FLUSH Review of Systems ROS unobtainable: due to endotracheal tube, due to mental status Physical Examination Vital signs: Vital Signs Pulse BP Pulse Ox 107 H 110/68 100 10/02/19 15:37 10/02/19 15:37 10/02/19 15:37 General appearance: comatose Eyes: non-icteric ENT: other (orally intubated, not on sedation) Neck: supple Effort: normal Ascultation: Bilateral: diminished breath sounds (not breathing over the vent) Percussion: Bilateral: not dull Cardiovascular: regular rate and rhythm Gastrointestinal: hypoactive bowel sounds Integumentary: normal Extremities: edema Results - Laboratory Findings CBC and BMP: 10/03/19 04:05 10/03/19 04:05 ABG POC ABG pH 7.312 (7.35-7.45) L 10/02/19 19:07 ABG pH 7.193 pH Units (7.350-7.450) L* 10/03/19 01:15 POC ABG pCO2 33.2 (35-45) L 10/02/19 19:07 ABG pCO2 35.9 mm Hg 10/03/19 01:15 POC ABG pO2 66 (80-105) L 10/02/19 19:07 ABG pO2 137.8 mm Hg (80.0-90.0) H 10/03/19 01:15 POC ABG HCO3 16.8 (22-26 mml/L) 10/02/19 19:07 POC ABG Total CO2 18 (23-27mmol/L) 10/02/19 19:07 POC ABG O2 Sat 91 10/02/19 19:07 ABG O2 Saturation 98.3 % (95.0-99.0) 10/03/19 01:15 PT/INR, D-dimer PT 15.9 Sec. (12.2-14.9) H 10/02/19 15:42 INR 1.25 (0.87-1.13) H 10/02/19 15:42 Abnormal lab findings: Abnormal Labs 10/02/19 10/02/19 10/02/19 15:42 15:42 15:42 WBC 13.4 H RBC 3.01 L Hgb 8.6 L Hct 27.2 L RDW 16.3 H Seg Neuts % (Manual) 73.0 H Lymphocytes % (Manual) Seg Neutrophils # Man 9.8 H Lymphocytes # (Manual) PT 15.9 H INR 1.25 H APTT 70.6 H* POC ABG pH ABG pH POC ABG pCO2 POC ABG pO2 ABG pO2 ABG HCO3 ABG Base Excess ABG Hemoglobin Potassium 3.3 L Carbon Dioxide 15 L BUN Creatinine 1.7 H Glucose 258 H Lactic Acid Calcium AST 89 H ALT Total Creatine Kinase 139 H CK-MB (CK-2) CK-MB (CK-2) Rel Index Troponin T Total Protein 5.8 L Albumin 2.8 L 10/02/19 10/02/19 10/02/19 16:14 17:00 17:07 WBC RBC Hgb Hct RDW Seg Neuts % (Manual) Lymphocytes % (Manual) Seg Neutrophils # Man Lymphocytes # (Manual) PT INR APTT POC ABG pH 7.139 L ABG pH POC ABG pCO2 57.6 H POC ABG pO2 292 H ABG pO2 ABG HCO3 ABG Base Excess ABG Hemoglobin Potassium Carbon Dioxide BUN Creatinine Glucose Lactic Acid 8.40 H* Calcium AST ALT Total Creatine Kinase 174 H CK-MB (CK-2) 4.1 H CK-MB (CK-2) Rel Index Troponin T 0.105 H* D Total Protein Albumin 10/02/19 10/02/19 10/02/19 19:07 20:03 22:30 WBC RBC Hgb Hct RDW Seg Neuts % (Manual) Lymphocytes % (Manual) Seg Neutrophils # Man Lymphocytes # (Manual) PT INR APTT POC ABG pH 7.312 L ABG pH POC ABG pCO2 33.2 L POC ABG pO2 66 L ABG pO2 ABG HCO3 ABG Base Excess ABG Hemoglobin Potassium Carbon Dioxide BUN Creatinine Glucose Lactic Acid 10.50 H* Calcium AST ALT Total Creatine Kinase 342 H CK-MB (CK-2) 16.0 H CK-MB (CK-2) Rel Index 4.6 H Troponin T 0.673 H* D Total Protein Albumin 10/02/19 10/02/19 10/03/19 22:30 23:19 01:15 WBC RBC Hgb Hct RDW Seg Neuts % (Manual) Lymphocytes % (Manual) Seg Neutrophils # Man Lymphocytes # (Manual) PT INR APTT POC ABG pH ABG pH 7.193 L* POC ABG pCO2 POC ABG pO2 ABG pO2 137.8 H ABG HCO3 13.5 L ABG Base Excess -13.6 L ABG Hemoglobin 8.7 L Potassium Carbon Dioxide BUN Creatinine Glucose Lactic Acid 12.30 H* 11.70 H* Calcium AST ALT Total Creatine Kinase CK-MB (CK-2) CK-MB (CK-2) Rel Index Troponin T Total Protein Albumin 10/03/19 10/03/19 10/03/19 04:05 04:05 04:05 WBC 17.3 H RBC 2.93 L Hgb 8.4 L Hct 26.3 L RDW 16.3 H Seg Neuts % (Manual) 96.0 H Lymphocytes % (Manual) 2.0 L Seg Neutrophils # Man 16.6 H Lymphocytes # (Manual) 0.3 L PT INR APTT POC ABG pH ABG pH POC ABG pCO2 POC ABG pO2 ABG pO2 ABG HCO3 ABG Base Excess ABG Hemoglobin Potassium Carbon Dioxide 18 L BUN 25 H Creatinine 2.4 H Glucose 319 H Lactic Acid 9.30 H* Calcium 7.6 L AST 152 H ALT 63 H Total Creatine Kinase CK-MB (CK-2) CK-MB (CK-2) Rel Index Troponin T Total Protein 5.7 L Albumin 2.8 L - Diagnostic Findings Chest x-ray: image reviewed (no acute intraparenchymal lung disease noted) Assessment and Plan 69 y/o female with out of hospital cardiac arrest, hypothermia, hypotensive, lactic acidosis, comatose and hyperglycemic. Long discussion with family in the waiting room. They were under the impression that their family member was sedated. She has not been on any sedation since admission to this hospital. I also explained that there has been a prolonged downtime and that this can affect brain function and even cause swelling/edema. In the mean time will do the followin. Neuro: obtain stat head CT. Will need EEG and neuro consult 2. Cardiac: Had what was thought to be Vtach but per cards SVT with aberrancy. They have elected not to use amio. Await their recs. Will make sure K and Mag levels are adequate. Per cards does have stents from back in 2016. She was still on effient which she does not need to be on any more. Will hold. Cards suggesting giving platelets as this medicine has no reversal agent 3. GI-patient with large amount of unprovoked coffee ground/black emesis. Last H/H was stable. Will check Q6 hours and transfuse for HgB less than 7. As stated above cards suggest platelet transfusion as the platelets the patient has, even though normal levels, do not work because of effient. Will speak with lab as [facility] is low and has been withholding platelets. 4. Renal-Worsening renal function. Lactic acid however in improving. Once in ICU will give about 3 to 4 boluses of normal saline. Follow up any new renal recs. 5. Pulm-CXR stable, minimal vent requirements but not breathing over. Gag was not present on suctioning. Continue vent support. No sedation 6. OVerall prognosis is extremely guarded to poor. This was relayed to the family as best as possible. CCT 31 minutes.
--- NOTE | 2019-10-03 14:59 | Cat Scan Report ---
CT HEAD WITHOUT CONTRAST INDICATION : Unresponsive post cardiac arrest. TECHNIQUE: Axial imaging performed from the skull apex through the skull base without the use of con trast. Sagittal and coronal reformatted images. All CT scans at this location are performed using C T dose reduction for ALARA by means of automated exposure control. COMPARISON: None FINDINGS: Parenchyma: There is diffuse brain edema with effacement of the sulci and basilar cisterns consisten t with a diffuse anoxic insult. There is no evidence for hemorrhage, mass or extra-axial fluid collec tion. Ventricles: Ventricles are compressed. Bones: No acute osseous abnormality. Sinuses: Mild mucosal thickening in the ethmoid and left maxillary sinus. Trace fluid in the left ma xillary sinus and sphenoid sinuses. Soft tissues: Soft tissues including the orbits appear normal. IMPRESSION: Findings consistent with diffuse anoxic injury. Signer Name: Calixto Page Jr, MD Signed: 10/03/2019 2:55 PM Workstation Name: [id number]
--- NOTE | 2019-10-03 15:28 | Event Note ---
Date: 10/03/19 CT scan shows diffuse anoxic injury with severe edema. There is effacement of the sulci and basal cisterns. Ventricles are compressed. Spoke with [facility]. They are going to consult Neurology. Spoke with the son as other family members were asleep.
--- NOTE | 2019-10-03 15:44 | Gastroenterology Consultation ---
History of Present Illness - Reason for Consult Consult date: 10/03/19 GI bleed Requesting physician: KASSIE MIRANDA - History of Present Illness Patient is a 69 y/o female with PMH of HTN, CAD, DM, HLD, obesity, PVD with nonhealing wound of right lower extremity who was brought to ED yesterday from outside facility in cardiac arrest after developing bradycardia/hypotension following sedation for diagnostic angiogram. She is s/p another code blue/cardiac arrest today and is currently in ICU, unresponsive on vent and pressor support with CT of head this afternoon showing diffuse anoxic injury with severe edema.GI has been consulted for coffee-ground emesis in OGT. Prior hx of GI bleeding unknown. No known hx of liver disease. No melena or hematochezia. Pupils fixed upon exam. Past History Past Medical History: other (see HPI) Past Surgical History: Other (Cath with stent placement) Social history: , lives with family. denies: smoking, alcohol abuse, prescription drug abuse Family history: diabetes, hypertension Medications and Allergies Allergies Allergy/AdvReac Type Severity Reaction Status Date / Time Unable to Assess Allergy Unverified 10/02/19 15:47 Active Meds: Active Medications Acetaminophen (Tylenol) 650 mg TX Q6HR PRN PRN Reason: Fever >101 Famotidine (Pepcid) 20 mg IV DAILY TAURUS Norepinephrine (Levophed Drip 4 Mg/Ns 250 Ml) 4 mg in 250 mls @ 7.5 mls/hr IV TITR TAURUS; Protocol Last Admin: 10/03/19 15:03 Dose: 15 mcg/min, 56.25 mls/hr Documented by: Levofloxacin/Dextrose (Levaquin 750mg/150ml) 750 mg in 150 mls @ 100 mls/hr IV Q48HR TAURUS; Protocol Last Admin: 10/03/19 12:28 Dose: 100 mls/hr Documented by: Sodium Bicarbonate 150 meq/ (Sterile Water) 1,150 mls @ 150 mls/hr IV DIRECT TAURUS Vasopressin 20 unit/ Sodium (Chloride) 101 mls @ 9.09 mls/hr IV TITR TAURUS; Protocol Insulin Human Lispro (Humalog) 0 unit SUB-Q Q6HR TAURUS; Protocol Sodium Chloride (Sodium Chloride Flush Syringe 10 Ml) 10 ml IV BID TAURUS Last Admin: 10/02/19 22:10 Dose: 10 ml Documented by: Sodium Chloride (Sodium Chloride Flush Syringe 10 Ml) 10 ml IV PRN PRN PRN Reason: LINE FLUSH medications reviewed/updated as required Review of Systems - Review of Systems ROS unobtainable: due to endotracheal tube, due to mental status Exam - Constitutional Vital Signs: Temp Pulse Resp BP Pulse Ox 99.6 F 91 H 18 111/53 99 10/03/19 11:00 10/03/19 14:12 10/03/19 14:12 10/03/19 14:12 10/03/19 14:12 General appearance: other (in ICU, unreponsive on vent and pressor support) - EENT Eyes: other (pupils fixed) ENT: other (+OGT with dark black drainage) - Respiratory Respiratory: bilateral: CTA - Cardiovascular Rhythm: regular - Gastrointestinal General gastrointestinal: Present: soft, non-distended, normal bowel sounds - Neurologic Neurological: other (unable to assess) - Labs CBC & Chem 7: 10/03/19 04:05 10/03/19 04:05 Lab Results: Laboratory Results - last 24 hr 10/02/19 10/02/19 10/02/19 15:42 15:42 15:42 WBC 13.4 H RBC 3.01 L Hgb 8.6 L Hct 27.2 L MCV 90 MCH 29 MCHC 32 RDW 16.3 H Plt Count 254 Add Manual Diff Complete Total Counted 100 Seg Neutrophils % Seg Neuts % (Manual) 73.0 H Band Neutrophils % 0 Lymphocytes % (Manual) 22.0 Reactive Lymphs % (Man) 0 Monocytes % (Manual) 3.0 Eosinophils % (Manual) 1.0 Basophils % (Manual) 0 Metamyelocytes % 0 Myelocytes % 1.0 Promyelocytes % 0 Blast Cells % 0 Nucleated RBC % Not Reportable Seg Neutrophils # Man 9.8 H Band Neutrophils # 0.0 Lymphocytes # (Manual) 2.9 Abs React Lymphs (Man) 0.0 Monocytes # (Manual) 0.4 Eosinophils # (Manual) 0.1 Basophils # (Manual) 0.0 Metamyelocytes # 0.0 Myelocytes # 0.1 Promyelocytes # 0.0 Blast Cells # 0.0 WBC Morphology Not Reportable Hypersegmented Neuts Not Reportable Hyposegmented Neuts Not Reportable Hypogranular Neuts Not Reportable Smudge Cells Not Reportable Toxic Granulation Not Reportable Toxic Vacuolation Not Reportable Dohle Bodies Not Reportable Pelger-Huet Anomaly Not Reportable Wally Rods Not Reportable Platelet Estimate Consistent w auto Clumped Platelets Not Reportable Plt Clumps, EDTA Not Reportable Large Platelets Not Reportable Giant Platelets Not Reportable Platelet Satelliting Not Reportable Plt Morphology Comment Not Reportable RBC Morphology Not Reportable Dimorphic RBCs Not Reportable Polychromasia Not Reportable Hypochromasia Not Reportable Poikilocytosis Not Reportable Anisocytosis Few Microcytosis Not Reportable Macrocytosis Not Reportable Spherocytes Not Reportable Pappenheimer Bodies Not Reportable Sickle Cells Not Reportable Target Cells Not Reportable Tear Drop Cells Not Reportable Ovalocytes Few Helmet Cells Not Reportable [place] Bodies Not Reportable [place] Rings Not Reportable Rincon Cells Not Reportable Bite Cells Not Reportable Crenated Cell Not Reportable Elliptocytes Rare Acanthocytes (Spur) Not Reportable Rouleaux Not Reportable Hemoglobin C Crystals Not Reportable Schistocytes Not Reportable Malaria parasites Not Reportable Magnus Bodies Not Reportable Hem Pathologist Commnt No PT 15.9 H INR 1.25 H APTT 70.6 H* POC ABG pH ABG pH POC ABG pCO2 ABG pCO2 POC ABG pO2 ABG pO2 POC ABG HCO3 ABG HCO3 POC ABG Total CO2 POC ABG O2 Sat ABG O2 Saturation ABG O2 Content POC ABG Base Excess ABG Base Excess ABG Hemoglobin ABG Carboxyhemoglobin ABG Methemoglobin Oxyhemoglobin FiO2 Sodium 140 Potassium 3.3 L Chloride 99.1 Carbon Dioxide 15 L Anion Gap 29 BUN 15 Creatinine 1.7 H Estimated GFR 36 BUN/Creatinine Ratio 9 Glucose 258 H POC Glucose Lactic Acid Calcium 8.5 Total Bilirubin 0.40 AST 89 H ALT 41 Alkaline Phosphatase 66 Total Creatine Kinase 139 H CK-MB (CK-2) 2.0 CK-MB (CK-2) Rel Index 1.4 Troponin T < 0.010 Total Protein 5.8 L Albumin 2.8 L Albumin/Globulin Ratio 0.9 Triglycerides Cholesterol LDL Cholesterol Direct HDL Cholesterol Cholesterol/HDL Ratio Blood Type Antibody Screen 10/02/19 10/02/19 10/02/19 15:42 16:14 17:00 WBC RBC Hgb Hct MCV MCH MCHC RDW Plt Count Add Manual Diff Total Counted Seg Neutrophils % Seg Neuts % (Manual) Band Neutrophils % Lymphocytes % (Manual) Reactive Lymphs % (Man) Monocytes % (Manual) Eosinophils % (Manual) Basophils % (Manual) Metamyelocytes % Myelocytes % Promyelocytes % Blast Cells % Nucleated RBC % Seg Neutrophils # Man Band Neutrophils # Lymphocytes # (Manual) Abs React Lymphs (Man) Monocytes # (Manual) Eosinophils # (Manual) Basophils # (Manual) Metamyelocytes # Myelocytes # Promyelocytes # Blast Cells # WBC Morphology Hypersegmented Neuts Hyposegmented Neuts Hypogranular Neuts Smudge Cells Toxic Granulation Toxic Vacuolation Dohle Bodies Pelger-Huet Anomaly Wally Rods Platelet Estimate Clumped Platelets Plt Clumps, EDTA Large Platelets Giant Platelets Platelet Satelliting Plt Morphology Comment RBC Morphology Dimorphic RBCs Polychromasia Hypochromasia Poikilocytosis Anisocytosis Microcytosis Macrocytosis Spherocytes Pappenheimer Bodies Sickle Cells Target Cells Tear Drop Cells Ovalocytes Helmet Cells [place] Bodies [place] Rings [place]incon Cells Bite Cells Crenated Cell Elliptocytes Acanthocytes (Spur) Rouleaux Hemoglobin C Crystals Schistocytes Malaria parasites Magnus Bodies Hem Pathologist Commnt PT INR APTT POC ABG pH 7.139 L ABG pH POC ABG pCO2 57.6 H ABG pCO2 POC ABG pO2 292 H ABG pO2 POC ABG HCO3 19.6 ABG HCO3 POC ABG Total CO2 21 POC ABG O2 Sat 100 ABG O2 Saturation ABG O2 Content POC ABG Base Excess -9 ABG Base Excess ABG Hemoglobin ABG Carboxyhemoglobin ABG Methemoglobin Oxyhemoglobin FiO2 100 Sodium Potassium Chloride Carbon Dioxide Anion Gap BUN Creatinine Estimated GFR BUN/Creatinine Ratio Glucose POC Glucose Lactic Acid 8.40 H* Calcium Total Bilirubin AST ALT Alkaline Phosphatase Total Creatine Kinase CK-MB (CK-2) CK-MB (CK-2) Rel Index Troponin T Total Protein Albumin Albumin/Globulin Ratio Triglycerides Cholesterol LDL Cholesterol Direct HDL Cholesterol Cholesterol/HDL Ratio Blood Type O POSITIVE Antibody Screen Negative 10/02/19 10/02/19 10/02/19 17:07 19:07 20:03 WBC RBC Hgb Hct MCV MCH MCHC RDW Plt Count Add Manual Diff Total Counted Seg Neutrophils % Seg Neuts % (Manual) Band Neutrophils % Lymphocytes % (Manual) Reactive Lymphs % (Man) Monocytes % (Manual) Eosinophils % (Manual) Basophils % (Manual) Metamyelocytes % Myelocytes % Promyelocytes % Blast Cells % Nucleated RBC % Seg Neutrophils # Man Band Neutrophils # Lymphocytes # (Manual) Abs React Lymphs (Man) Monocytes # (Manual) Eosinophils # (Manual) Basophils # (Manual) Metamyelocytes # Myelocytes # Promyelocytes # Blast Cells # WBC Morphology Hypersegmented Neuts Hyposegmented Neuts Hypogranular Neuts Smudge Cells Toxic Granulation Toxic Vacuolation Dohle Bodies Pelger-Huet Anomaly Wal[place] Rods Platelet Estimate Clumped Platelets Plt Clumps, EDTA Large Platelets Giant Platelets Platelet Satelliting Plt Morphology Comment RBC Morphology Dimorphic RBCs Polychromasia Hypochromasia Poikilocytosis Anisocytosis Microcytosis Macrocytosis Spherocytes Pappenheimer Bodies Sickle Cells Target Cells Tear Drop Cells Ovalocytes Helmet Cells [place] Bodies [place] Rings [place]incon Cells Bite Cells Crenated Cell Elliptocytes Acanthocytes (Spur) Rouleaux Hemoglobin C Crystals Schistocytes Malaria parasites Magnus Bodies Hem Pathologist Commnt PT INR APTT POC ABG pH 7.312 L ABG pH POC ABG pCO2 33.2 L ABG pCO2 POC ABG pO2 66 L ABG pO2 POC ABG HCO3 16.8 ABG HCO3 POC ABG Total CO2 18 POC ABG O2 Sat 91 ABG O2 Saturation ABG O2 Content POC ABG Base Excess -9 ABG Base Excess ABG Hemoglobin ABG Carboxyhemoglobin ABG Methemoglobin Oxyhemoglobin FiO2 45 Sodium Potassium Chloride Carbon Dioxide Anion Gap BUN Creatinine Estimated GFR BUN/Creatinine Ratio Glucose POC Glucose Lactic Acid 10.50 H* Calcium Total Bilirubin AST ALT Alkaline Phosphatase Total Creatine Kinase 174 H CK-MB (CK-2) 4.1 H CK-MB (CK-2) Rel Index 2.3 Troponin T 0.105 H* D Total Protein Albumin Albumin/Globulin Ratio Triglycerides 85 Cholesterol 115 LDL Cholesterol Direct 75 HDL Cholesterol 46 Cholesterol/HDL Ratio 2.50 Blood Type Antibody Screen 10/02/19 10/02/19 10/02/19 22:30 22:30 23:19 WBC RBC Hgb Hct MCV MCH MCHC RDW Plt Count Add Manual Diff Total Counted Seg Neutrophils % Seg Neuts % (Manual) Band Neutrophils % Lymphocytes % (Manual) Reactive Lymphs % (Man) Monocytes % (Manual) Eosinophils % (Manual) Basophils % (Manual) Metamyelocytes % Myelocytes % Promyelocytes % Blast Cells % Nucleated RBC % Seg Neutrophils # Man Band Neutrophils # Lymphocytes # (Manual) Abs React Lymphs (Man) Monocytes # (Manual) Eosinophils # (Manual) Basophils # (Manual) Metamyelocytes # Myelocytes # Promyelocytes # Blast Cells # WBC Morphology Hypersegmented Neuts Hyposegmented Neuts Hypogranular Neuts Smudge Cells Toxic Granulation Toxic Vacuolation Dohle Bodies Pelger-Huet Anomaly Wally Rods Platelet Estimate Clumped Platelets Plt Clumps, EDTA Large Platelets Giant Platelets Platelet Satelliting Plt Morphology Comment RBC Morphology Dimorphic RBCs Polychromasia Hypochromasia Poikilocytosis Anisocytosis Microcytosis Macrocytosis Spherocytes Pappenheimer Bodies Sickle Cells Target Cells Tear Drop Cells Ovalocytes Helmet Cells [place] Bodies [place] Rings Diamond Cells Bite Cells Crenated Cell Elliptocytes Acanthocytes (Spur) Rouleaux Hemoglobin C Crystals Schistocytes Malaria parasites Magnus Bodies Hem Pathologist Commnt PT INR APTT POC ABG pH ABG pH POC ABG pCO2 ABG pCO2 POC ABG pO2 ABG pO2 POC ABG HCO3 ABG HCO3 POC ABG Total CO2 POC ABG O2 Sat ABG O2 Saturation ABG O2 Content POC ABG Base Excess ABG Base Excess ABG Hemoglobin ABG Carboxyhemoglobin ABG Methemoglobin Oxyhemoglobin FiO2 Sodium Potassium Chloride Carbon Dioxide Anion Gap BUN Creatinine Estimated GFR BUN/Creatinine Ratio Glucose POC Glucose Lactic Acid 12.30 H* 11.70 H* Calcium Total Bilirubin AST ALT Alkaline Phosphatase Total Creatine Kinase 342 H CK-MB (CK-2) 16.0 H CK-MB (CK-2) Rel Index 4.6 H Troponin T 0.673 H* D Total Protein Albumin Albumin/Globulin Ratio Triglycerides Cholesterol LDL Cholesterol Direct HDL Cholesterol Cholesterol/HDL Ratio Blood Type Antibody Screen 10/03/19 10/03/19 10/03/19 01:15 04:05 04:05 WBC 17.3 H RBC 2.93 L Hgb 8.4 L Hct 26.3 L MCV 90 MCH 29 MCHC 32 RDW 16.3 H Plt Count 269 Add Manual Diff Complete Total Counted 100 Seg Neutrophils % Tree Farmer Seg Neuts % (Manual) 96.0 H Band Neutrophils % 0 Lymphocytes % (Manual) 2.0 L Reactive Lymphs % (Man) 0 Monocytes % (Manual) 2.0 Eosinophils % (Manual) 0 Basophils % (Manual) 0 Metamyelocytes % 0 Myelocytes % 0 Promyelocytes % 0 Blast Cells % 0 Nucleated RBC % Not Reportable Seg Neutrophils # Man 16.6 H Band Neutrophils # 0.0 Lymphocytes # (Manual) 0.3 L Abs React Lymphs (Man) 0.0 Monocytes # (Manual) 0.3 Eosinophils # (Manual) 0.0 Basophils # (Manual) 0.0 Metamyelocytes # 0.0 Myelocytes # 0.0 Promyelocytes # 0.0 Blast Cells # 0.0 WBC Morphology Not Reportable Hypersegmented Neuts Not Reportable Hyposegmented Neuts Not Reportable Hypogranular Neuts Not Reportable Smudge Cells Not Reportable Toxic Granulation Not Reportable Toxic Vacuolation Not Reportable Dohle Bodies Not Reportable Pelger-Huet Anomaly Not Reportable Wally Rods Not Reportable Platelet Estimate Consistent w auto Clumped Platelets Not Reportable Plt Clumps, EDTA Not Reportable Large Platelets Not Reportable Giant Platelets Not Reportable Platelet Satelliting Not Reportable Plt Morphology Comment Not Reportable RBC Morphology Not Reportable Dimorphic RBCs Not Reportable Polychromasia Not Reportable Hypochromasia Not Reportable Poikilocytosis Not Reportable Anisocytosis 1+ Microcytosis Not Reportable Macrocytosis Not Reportable Spherocytes Not Reportable Pappenheimer Bodies Not Reportable Sickle Cells Not Reportable Target Cells Not Reportable Tear Drop Cells Not Reportable Ovalocytes Few Helmet Cells Not Reportable [place] Bodies Not Reportable [place] Rings Not Reportable Diamond Cells Not Reportable Bite Cells Not Reportable Crenated Cell Not Reportable Elliptocytes Few Acanthocytes (Spur) Not Reportable Rouleaux Not Reportable Hemoglobin C Crystals Not Reportable Schistocytes Not Reportable Malaria parasites Not Reportable Magnus Bodies Not Reportable Hem Pathologist Commnt No PT INR APTT POC ABG pH ABG pH 7.193 L* POC ABG pCO2 ABG pCO2 35.9 POC ABG pO2 ABG pO2 137.8 H POC ABG HCO3 ABG HCO3 13.5 L POC ABG Total CO2 POC ABG O2 Sat ABG O2 Saturation 98.3 ABG O2 Content 12.2 POC ABG Base Excess ABG Base Excess -13.6 L ABG Hemoglobin 8.7 L ABG Carboxyhemoglobin 1.2 ABG Methemoglobin 0.4 Oxyhemoglobin 96.8 FiO2 65 Sodium 143 Potassium 4.9 D Chloride 106.8 Carbon Dioxide 18 L Anion Gap 23 BUN 25 H Creatinine 2.4 H Estimated GFR 24 BUN/Creatinine Ratio 10 Glucose 319 H POC Glucose Lactic Acid Calcium 7.6 L Total Bilirubin 0.30 AST 152 H ALT 63 H Alkaline Phosphatase 63 Total Creatine Kinase CK-MB (CK-2) CK-MB (CK-2) Rel Index Troponin T Total Protein 5.7 L Albumin 2.8 L Albumin/Globulin Ratio 1.0 Triglycerides Cholesterol LDL Cholesterol Direct HDL Cholesterol Cholesterol/HDL Ratio Blood Type Antibody Screen 10/03/19 10/03/19 04:05 12:52 WBC RBC Hgb Hct MCV MCH MCHC RDW Plt Count Add Manual Diff Total Counted Seg Neutrophils % Seg Neuts % (Manual) Band Neutrophils % Lymphocytes % (Manual) Reactive Lymphs % (Man) Monocytes % (Manual) Eosinophils % (Manual) Basophils % (Manual) Metamyelocytes % Myelocytes % Promyelocytes % Blast Cells % Nucleated RBC % Seg Neutrophils # Man Band Neutrophils # Lymphocytes # (Manual) Abs React Lymphs (Man) Monocytes # (Manual) Eosinophils # (Manual) Basophils # (Manual) Metamyelocytes # Myelocytes # Promyelocytes # Blast Cells # WBC Morphology Hypersegmented Neuts Hyposegmented Neuts Hypogranular Neuts Smudge Cells Toxic Granulation Toxic Vacuolation Dohle Bodies Pelger-Huet Anomaly Wally Rods Platelet Estimate Clumped Platelets Plt Clumps, EDTA Large Platelets Giant Platelets Platelet Satelliting Plt Morphology Comment RBC Morphology Dimorphic RBCs Polychromasia Hypochromasia Poikilocytosis Anisocytosis Microcytosis Macrocytosis Spherocytes Pappenheimer Bodies Sickle Cells Target Cells Tear Drop Cells Ovalocytes Helmet Cells [place] Bodies [place] Rings Diamond Cells Bite Cells Crenated Cell Elliptocytes Acanthocytes (Spur) Rouleaux Hemoglobin C Crystals Schistocytes Malaria parasites Magnus Bodies Hem Pathologist Commnt PT INR APTT POC ABG pH ABG pH POC ABG pCO2 ABG pCO2 POC ABG pO2 ABG pO2 POC ABG HCO3 ABG HCO3 POC ABG Total CO2 POC ABG O2 Sat ABG O2 Saturation ABG O2 Content POC ABG Base Excess ABG Base Excess ABG Hemoglobin ABG Carboxyhemoglobin ABG Methemoglobin Oxyhemoglobin FiO2 Sodium Potassium Chloride Carbon Dioxide Anion Gap BUN Creatinine Estimated GFR BUN/Creatinine Ratio Glucose POC Glucose 369 H Lactic Acid 9.30 H* Calcium Total Bilirubin AST ALT Alkaline Phosphatase Total Creatine Kinase CK-MB (CK-2) CK-MB (CK-2) Rel Index Troponin T Total Protein Albumin Albumin/Globulin Ratio Triglycerides Cholesterol LDL Cholesterol Direct HDL Cholesterol Cholesterol/HDL Ratio Blood Type Antibody Screen Assessment and Plan 1.GI bleed/coffee-ground emesis 2.s/p cardiac arrest x 2 3.anoxic brain injury -H/H 8.4/26.3-stable -continue to monitor H/H and transfuse as needed; hold blood thinning medications -patient s/p cardiac arrest this afternoon with now dark black drainage from OGT. No hematemesis, melena, or hematochezia -clinically, patient is in critical condition in ICU unresponsive on vent/pres sor support with worsening renal function and anoxic brain injury with severe edema on head CT this afternoon. -patient currently to unstable for EGD (consider once medically stable or if overt bleeding develops) -OGT to LIS to monitor output -start on protonix drip -continue supportive care -Very poor prognosis; plan of care discussion with family per primary team -will follow
--- NOTE | 2019-10-03 16:06 | Progress Note ---
Assessment and Plan Patient with evidence of anoxic brain injury Coffee ground from NGT likely needs Protonix i.v. Acidosis Very poor prognosis Will discuss with family Subjective Date of service: 10/03/19 Interval history: The patient remains unresponsive without sedation. She is on the vent and does not breath over the vent. Recent CT of the Head show evidence of diffuse anoxic brain injury. She also has copious amount of coffee ground drainage from her NG Tube and remains on pressors to support her hemodynamically. Objective - Constitutional Vitals: Vital Signs - 12hr 10/03/19 10/03/19 10/03/19 04:06 04:10 04:16 Temperature Pulse Rate 92 H 93 H 92 H Respiratory 19 24 20 Rate Blood Pressure 110/48 103/48 109/53 Blood Pressure [Right] O2 Sat by Pulse 100 100 100 Oximetry 10/03/19 10/03/19 10/03/19 04:20 04:25 04:30 Temperature Pulse Rate 93 H 93 H 93 H Respiratory 18 22 24 Rate Blood Pressure 116/47 107/53 113/47 Blood Pressure [Right] O2 Sat by Pulse 100 100 100 Oximetry 10/03/19 10/03/19 10/03/19 04:36 04:40 04:46 Temperature Pulse Rate 94 H 93 H 94 H Respiratory 23 16 20 Rate Blood Pressure 103/55 114/51 105/50 Blood Pressure [Right] O2 Sat by Pulse 100 100 100 Oximetry 10/03/19 10/03/19 10/03/19 04:50 04:55 05:00 Temperature Pulse Rate 94 H 94 H 94 H Respiratory 25 H 16 24 Rate Blood Pressure 117/54 116/52 116/53 Blood Pressure [Right] O2 Sat by Pulse 100 99 99 Oximetry 10/03/19 10/03/19 10/03/19 05:05 05:10 05:16 Temperature Pulse Rate 94 H 94 H 94 H Respiratory 23 24 23 Rate Blood Pressure 112/53 114/50 112/56 Blood Pressure [Right] O2 Sat by Pulse 100 100 99 Oximetry 10/03/19 10/03/19 10/03/19 05:20 05:25 05:30 Temperature Pulse Rate 94 H 93 H 94 H Respiratory 27 H 16 23 Rate Blood Pressure 116/54 118/49 122/55 Blood Pressure [Right] O2 Sat by Pulse 99 99 99 Oximetry 10/03/19 10/03/19 10/03/19 05:36 05:40 05:46 Temperature Pulse Rate 95 H 95 H 95 H Respiratory 23 17 24 Rate Blood Pressure 117/55 124/56 116/56 Blood Pressure [Right] O2 Sat by Pulse 99 99 99 Oximetry 10/03/19 10/03/19 10/03/19 05:50 05:55 06:00 Temperature Pulse Rate 95 H 96 H 96 H Respiratory 21 20 31 H Rate Blood Pressure 123/53 117/54 118/57 Blood Pressure [Right] O2 Sat by Pulse 99 99 100 Oximetry 10/03/19 10/03/19 10/03/19 06:06 06:10 06:16 Temperature Pulse Rate 95 H 96 H 96 H Respiratory 20 24 26 H Rate Blood Pressure 124/58 120/56 130/59 Blood Pressure [Right] O2 Sat by Pulse 99 99 98 Oximetry 10/03/19 10/03/19 10/03/19 06:20 06:25 06:30 Temperature Pulse Rate 95 H 96 H 96 H Respiratory 25 H 27 H 27 H Rate Blood Pressure 122/63 123/58 125/60 Blood Pressure [Right] O2 Sat by Pulse 100 99 99 Oximetry 10/03/19 10/03/19 10/03/19 06:36 06:40 06:46 Temperature Pulse Rate 96 H 96 H 97 H Respiratory 30 H 30 H 29 H Rate Blood Pressure 124/60 129/65 127/64 Blood Pressure [Right] O2 Sat by Pulse 98 100 98 Oximetry 10/03/19 10/03/19 10/03/19 06:50 06:55 08:15 Temperature Pulse Rate 96 H 97 H Respiratory 30 H 23 Rate Blood Pressure 121/64 130/62 Blood Pressure [Right] O2 Sat by Pulse 99 99 100 Oximetry 10/03/19 10/03/19 10/03/19 08:26 09:34 09:45 Temperature Pulse Rate 107 H 114 H 116 H Respiratory 27 H 31 H Rate Blood Pressure 140/69 142/68 Blood Pressure 141/69 [Right] O2 Sat by Pulse 100 100 100 Oximetry 10/03/19 10/03/19 10/03/19 09:50 09:56 10:00 Temperature Pulse Rate 115 H 117 H 118 H Respiratory 22 24 24 Rate Blood Pressure 142/68 142/68 133/69 Blood Pressure 133/69 [Right] O2 Sat by Pulse 100 100 100 Oximetry 10/03/19 10/03/19 10/03/19 10:06 10:10 10:15 Temperature Pulse Rate 118 H 118 H 119 H Respiratory 25 H 29 H 29 H Rate Blood Pressure 133/69 133/69 129/68 Blood Pressure [Right] O2 Sat by Pulse 100 100 100 Oximetry 10/03/19 10/03/19 10/03/19 10:20 10:26 10:30 Temperature Pulse Rate 119 H 118 H 118 H Respiratory 31 H 31 H 25 H Rate Blood Pressure 129/68 129/68 131/69 Blood Pressure [Right] O2 Sat by Pulse 100 100 100 Oximetry 10/03/19 10/03/19 10/03/19 10:36 10:40 10:45 Temperature Pulse Rate 117 H 118 H 118 H Respiratory 23 31 H 26 H Rate Blood Pressure 133/69 133/69 146/68 Blood Pressure [Right] O2 Sat by Pulse 100 100 100 Oximetry 10/03/19 10/03/19 10/03/19 10:50 10:56 11:00 Temperature 99.6 F Pulse Rate 117 H 117 H 116 H Respiratory 28 H 30 H 24 Rate Blood Pressure 146/68 146/68 126/62 Blood Pressure 126/62 [Right] O2 Sat by Pulse 100 100 100 Oximetry 10/03/19 10/03/19 10/03/19 11:06 11:10 11:16 Temperature Pulse Rate 114 H 111 H 118 H Respiratory 20 22 23 Rate Blood Pressure 126/62 126/62 126/62 Blood Pressure [Right] O2 Sat by Pulse 100 100 100 Oximetry 10/03/19 10/03/19 10/03/19 11:20 11:26 11:30 Temperature Pulse Rate 111 H 109 H 109 H Respiratory 16 17 23 Rate Blood Pressure 126/62 121/54 117/49 Blood Pressure [Right] O2 Sat by Pulse 100 99 100 Oximetry 10/03/19 10/03/19 10/03/19 11:36 11:40 11:46 Temperature Pulse Rate 107 H 104 H 101 H Respiratory 8 L 11 L 15 Rate Blood Pressure 117/49 117/49 77/46 Blood Pressure [Right] O2 Sat by Pulse 98 97 98 Oximetry 10/03/19 10/03/19 10/03/19 11:50 11:55 12:00 Temperature Pulse Rate 99 H 98 H 93 H Respiratory 30 H 30 H 30 H Rate Blood Pressure 83/42 91/43 91/46 Blood Pressure [Right] O2 Sat by Pulse 97 98 99 Oximetry 10/03/19 10/03/19 10/03/19 12:05 12:10 12:20 Temperature Pulse Rate 92 H 90 Respiratory 30 H 29 H 16 Rate Blood Pressure 79/44 90/41 90/41 Blood Pressure [Right] O2 Sat by Pulse 99 99 100 Oximetry 10/03/19 10/03/19 10/03/19 12:25 12:27 12:30 Temperature Pulse Rate 96 H 92 H Respiratory 30 H 30 H 30 H Rate Blood Pressure 136/67 110/54 Blood Pressure 136/67 [Right] O2 Sat by Pulse 100 100 100 Oximetry 10/03/19 10/03/19 10/03/19 12:35 12:40 12:46 Temperature Pulse Rate 88 177 H Respiratory 30 H 20 53 H Rate Blood Pressure 92/44 90/41 90/41 Blood Pressure [Right] O2 Sat by Pulse 99 Oximetry 10/03/19 10/03/19 10/03/19 12:50 12:56 13:00 Temperature Pulse Rate 151 H 139 H 131 H Respiratory 10 L 30 H 30 H Rate Blood Pressure 124/61 117/54 103/47 Blood Pressure [Right] O2 Sat by Pulse 97 96 96 Oximetry 10/03/19 10/03/19 10/03/19 13:05 13:10 13:15 Temperature Pulse Rate 129 H 116 H 110 H Respiratory 29 H 30 H 30 H Rate Blood Pressure 80/42 84/43 89/44 Blood Pressure [Right] O2 Sat by Pulse 97 98 99 Oximetry 10/03/19 10/03/19 10/03/19 13:20 13:25 13:30 Temperature Pulse Rate 101 H 98 H 98 H Respiratory 30 H 30 H 30 H Rate Blood Pressure 74/38 77/37 93/45 Blood Pressure [Right] O2 Sat by Pulse 98 98 99 Oximetry 10/03/19 10/03/19 10/03/19 13:35 13:40 13:45 Temperature Pulse Rate 97 H 94 H 91 H Respiratory 30 H 30 H 30 H Rate Blood Pressure 99/47 89/43 92/45 Blood Pressure [Right] O2 Sat by Pulse 99 98 98 Oximetry 10/03/19 10/03/19 10/03/19 13:50 13:55 14:12 Temperature Pulse Rate 90 91 H 91 H Respiratory 30 H 15 18 Rate Blood Pressure 96/48 103/49 Blood Pressure 111/53 [Right] O2 Sat by Pulse 98 99 99 Oximetry General appearance: Present: other (unresponsive ) - Respiratory Respiratory effort: other (ventilated without respirations above vent rate) - Cardiovascular Rhythm: regular (wide complex) Extremity abnormal: edema - Gastrointestinal General gastrointestinal: Present: soft - Neurologic Neurologic: other (no reaction to painful stimuli, no gag reflex) - Labs CBC & Chem 7: 10/03/19 04:05 10/03/19 04:05 Labs: Abnormal lab results 10/02/19 10/02/19 10/02/19 Range/Units 15:42 15:42 15:42 WBC (4.5-11.0) K/mm3 RBC (3.65-5.03) M/mm3 Hgb (10.1-14.3) gm/dl Hct (30.3-42.9) % RDW (13.2-15.2) % Seg Neuts % (Manual) 73.0 H (40.0-70.0) % Lymphocytes % (Manual) (13.4-35.0) % Seg Neutrophils # Man 9.8 H (1.8-7.7) K/mm3 Lymphocytes # (Manual) (1.2-5.4) K/mm3 PT 15.9 H (12.2-14.9) Sec. INR 1.25 H (0.87-1.13) APTT 70.6 H* (24.2-36.6) Sec. POC ABG pH (7.35-7.45) ABG pH (7.350-7.450) pH Units POC ABG pCO2 (35-45) POC ABG pO2 (80-105) ABG pO2 (80.0-90.0) mm Hg ABG HCO3 (20.0-26.0) mmol/L ABG Base Excess (-2.0-3.0) mmol/L ABG Hemoglobin (12.0-16.0) gm/dl Potassium 3.3 L (3.6-5.0) mmol/L Carbon Dioxide 15 L (22-30) mmol/L BUN (7-17) mg/dL Creatinine 1.7 H (0.7-1.2) mg/dL Glucose 258 H (65-100) mg/dL POC Glucose (70-105) Lactic Acid (0.7-2.0) mmol/L Calcium (8.4-10.2) mg/dL AST 89 H (5-40) units/L ALT (7-56) units/L Total Creatine Kinase 139 H (30-135) units/L CK-MB (CK-2) (0.0-4.0) ng/mL CK-MB (CK-2) Rel Index (0-4) Troponin T (0.00-0.029) ng/mL Total Protein 5.8 L (6.3-8.2) g/dL Albumin 2.8 L (3.9-5) g/dL 10/02/19 10/02/19 10/02/19 Range/Units 16:14 17:00 17:07 WBC (4.5-11.0) K/mm3 RBC (3.65-5.03) M/mm3 Hgb (10.1-14.3) gm/dl Hct (30.3-42.9) % RDW (13.2-15.2) % Seg Neuts % (Manual) (40.0-70.0) % Lymphocytes % (Manual) (13.4-35.0) % Seg Neutrophils # Man (1.8-7.7) K/mm3 Lymphocytes # (Manual) (1.2-5.4) K/mm3 PT (12.2-14.9) Sec. INR (0.87-1.13) APTT (24.2-36.6) Sec. POC ABG pH 7.139 L (7.35-7.45) ABG pH (7.350-7.450) pH Units POC ABG pCO2 57.6 H (35-45) POC ABG pO2 292 H (80-105) ABG pO2 (80.0-90.0) mm Hg ABG HCO3 (20.0-26.0) mmol/L ABG Base Excess (-2.0-3.0) mmol/L ABG Hemoglobin (12.0-16.0) gm/dl Potassium (3.6-5.0) mmol/L Carbon Dioxide (22-30) mmol/L BUN (7-17) mg/dL Creatinine (0.7-1.2) mg/dL Glucose (65-100) mg/dL POC Glucose (70-105) Lactic Acid 8.40 H* (0.7-2.0) mmol/L Calcium (8.4-10.2) mg/dL AST (5-40) units/L ALT (7-56) units/L Total Creatine Kinase 174 H (30-135) units/L CK-MB (CK-2) 4.1 H (0.0-4.0) ng/mL CK-MB (CK-2) Rel Index (0-4) Troponin T 0.105 H* D (0.00-0.029) ng/mL Total Protein (6.3-8.2) g/dL Albumin (3.9-5) g/dL 10/02/19 10/02/19 10/02/19 Range/Units 19:07 20:03 22:30 WBC (4.5-11.0) K/mm3 RBC (3.65-5.03) M/mm3 Hgb (10.1-14.3) gm/dl Hct (30.3-42.9) % RDW (13.2-15.2) % Seg Neuts % (Manual) (40.0-70.0) % Lymphocytes % (Manual) (13.4-35.0) % Seg Neutrophils # Man (1.8-7.7) K/mm3 Lymphocytes # (Manual) (1.2-5.4) K/mm3 PT (12.2-14.9) Sec. INR (0.87-1.13) APTT (24.2-36.6) Sec. POC ABG pH 7.312 L (7.35-7.45) ABG pH (7.350-7.450) pH Units POC ABG pCO2 33.2 L (35-45) POC ABG pO2 66 L (80-105) ABG pO2 (80.0-90.0) mm Hg ABG HCO3 (20.0-26.0) mmol/L ABG Base Excess (-2.0-3.0) mmol/L ABG Hemoglobin (12.0-16.0) gm/dl Potassium (3.6-5.0) mmol/L Carbon Dioxide (22-30) mmol/L BUN (7-17) mg/dL Creatinine (0.7-1.2) mg/dL Glucose (65-100) mg/dL POC Glucose (70-105) Lactic Acid 10.50 H* (0.7-2.0) mmol/L Calcium (8.4-10.2) mg/dL AST (5-40) units/L ALT (7-56) units/L Total Creatine Kinase 342 H (30-135) units/L CK-MB (CK-2) 16.0 H (0.0-4.0) ng/mL CK-MB (CK-2) Rel Index 4.6 H (0-4) Troponin T 0.673 H* D (0.00-0.029) ng/mL Total Protein (6.3-8.2) g/dL Albumin (3.9-5) g/dL 10/02/19 10/02/19 10/03/19 Range/Units 22:30 23:19 01:15 WBC (4.5-11.0) K/mm3 RBC (3.65-5.03) M/mm3 Hgb (10.1-14.3) gm/dl Hct (30.3-42.9) % RDW (13.2-15.2) % Seg Neuts % (Manual) (40.0-70.0) % Lymphocytes % (Manual) (13.4-35.0) % Seg Neutrophils # Man (1.8-7.7) K/mm3 Lymphocytes # (Manual) (1.2-5.4) K/mm3 PT (12.2-14.9) Sec. INR (0.87-1.13) APTT (24.2-36.6) Sec. POC ABG pH (7.35-7.45) ABG pH 7.193 L* (7.350-7.450) pH Units POC ABG pCO2 (35-45) POC ABG pO2 (80-105) ABG pO2 137.8 H (80.0-90.0) mm Hg ABG HCO3 13.5 L (20.0-26.0) mmol/L ABG Base Excess -13.6 L (-2.0-3.0) mmol/L ABG Hemoglobin 8.7 L (12.0-16.0) gm/dl Potassium (3.6-5.0) mmol/L Carbon Dioxide (22-30) mmol/L BUN (7-17) mg/dL Creatinine (0.7-1.2) mg/dL Glucose (65-100) mg/dL POC Glucose (70-105) Lactic Acid 12.30 H* 11.70 H* (0.7-2.0) mmol/L Calcium (8.4-10.2) mg/dL AST (5-40) units/L ALT (7-56) units/L Total Creatine Kinase (30-135) units/L CK-MB (CK-2) (0.0-4.0) ng/mL CK-MB (CK-2) Rel Index (0-4) Troponin T (0.00-0.029) ng/mL Total Protein (6.3-8.2) g/dL Albumin (3.9-5) g/dL 10/03/19 10/03/19 10/03/19 Range/Units 04:05 04:05 04:05 WBC 17.3 H (4.5-11.0) K/mm3 RBC 2.93 L (3.65-5.03) M/mm3 Hgb 8.4 L (10.1-14.3) gm/dl Hct 26.3 L (30.3-42.9) % RDW 16.3 H (13.2-15.2) % Seg Neuts % (Manual) 96.0 H (40.0-70.0) % Lymphocytes % (Manual) 2.0 L (13.4-35.0) % Seg Neutrophils # Man 16.6 H (1.8-7.7) K/mm3 Lymphocytes # (Manual) 0.3 L (1.2-5.4) K/mm3 PT (12.2-14.9) Sec. INR (0.87-1.13) APTT (24.2-36.6) Sec. POC ABG pH (7.35-7.45) ABG pH (7.350-7.450) pH Units POC ABG pCO2 (35-45) POC ABG pO2 (80-105) ABG pO2 (80.0-90.0) mm Hg ABG HCO3 (20.0-26.0) mmol/L ABG Base Excess (-2.0-3.0) mmol/L ABG Hemoglobin (12.0-16.0) gm/dl Potassium (3.6-5.0) mmol/L Carbon Dioxide 18 L (22-30) mmol/L BUN 25 H (7-17) mg/dL Creatinine 2.4 H (0.7-1.2) mg/dL Glucose 319 H (65-100) mg/dL POC Glucose (70-105) Lactic Acid 9.30 H* (0.7-2.0) mmol/L Calcium 7.6 L (8.4-10.2) mg/dL AST 152 H (5-40) units/L ALT 63 H (7-56) units/L Total Creatine Kinase (30-135) units/L CK-MB (CK-2) (0.0-4.0) ng/mL CK-MB (CK-2) Rel Index (0-4) Troponin T (0.00-0.029) ng/mL Total Protein 5.7 L (6.3-8.2) g/dL Albumin 2.8 L (3.9-5) g/dL 12 Range/Units 12:52 WBC (4.5-11.0) K/mm3 RBC (3.65-5.03) M/mm3 Hgb (10.1-14.3) gm/dl Hct (30.3-42.9) % RDW (13.2-15.2) % Seg Neuts % (Manual) (40.0-70.0) % Lymphocytes % (Manual) (13.4-35.0) % Seg Neutrophils # Man (1.8-7.7) K/mm3 Lymphocytes # (Manual) (1.2-5.4) K/mm3 PT (12.2-14.9) Sec. INR (0.87-1.13) APTT (24.2-36.6) Sec. POC ABG pH (7.35-7.45) ABG pH (7.350-7.450) pH Units POC ABG pCO2 (35-45) POC ABG pO2 (80-105) ABG pO2 (80.0-90.0) mm Hg ABG HCO3 (20.0-26.0) mmol/L ABG Base Excess (-2.0-3.0) mmol/L ABG Hemoglobin (12.0-16.0) gm/dl Potassium (3.6-5.0) mmol/L Carbon Dioxide (22-30) mmol/L BUN (7-17) mg/dL Creatinine (0.7-1.2) mg/dL Glucose (65-100) mg/dL POC Glucose 369 H (70-105) Lactic Acid (0.7-2.0) mmol/L Calcium (8.4-10.2) mg/dL AST (5-40) units/L ALT (7-56) units/L Total Creatine Kinase (30-135) units/L CK-MB (CK-2) (0.0-4.0) ng/mL CK-MB (CK-2) Rel Index (0-4) Troponin T (0.00-0.029) ng/mL Total Protein (6.3-8.2) g/dL Albumin (3.9-5) g/dL - Imaging and cardiology CT Scan - head: image reviewed Medications & Allergies - Medications Allergies/Adverse Reactions: Allergies Unable to Assess Allergy (Unverified 10/02/19 15:47) unable to assess Active Medications: Generic Name Dose Route Start Last Admin Trade Name Freq PRN Reason Stop Dose Admin Acetaminophen 650 mg 10/02/19 17:01 Tylenol OK Q6HR PRN Fever >101 Famotidine 20 mg 10/03/19 12:00 Pepcid IV DAILY [facility] Norepinephrine 4 mg in 250 mls @ 7.5 mls/hr 10/02/19 17:00 10/03/19 15:03 Levophed Drip 4 Mg/Ns 250 Ml IV 15 mcg/min TITR [facility] 56.25 mls/hr Administration Protocol 2 MCG/MIN Levofloxacin/Dextrose 750 mg in 150 mls @ 100 mls/hr 10/03/19 10:00 10/03/19 12:28 Levaquin 750mg/150ml IV 100 mls/hr Q48HR [facility] Administration Protocol Sodium Bicarbonate 150 meq/ 1,150 mls @ 150 mls/hr 10/03/19 14:00 Sterile Water IV DIRECT [facility]UR[facility] Vasopressin 20 unit/ Sodium 101 mls @ 9.09 mls/hr 10/03/19 14:00 Chloride IV TITR [facility] Protocol 0.03 UNITS/MIN Insulin Human Lispro 0 unit 10/03/19 18:00 Humalog SUB-Q Q6HR [facility] Protocol Sodium Chloride 10 ml 10/02/19 22:00 10/02/19 22:10 Sodium Chloride Flush Syringe 10 Ml IV 10 ml BID [facility] Administration Sodium Chloride 10 ml 10/02/19 17:01 Sodium Chloride Flush Syringe 10 Ml IV PRN PRN LINE FLUSH
[2019-10-03] MEDS: FAMOTIDINE 20 MG/2 ML INJ IV SCH (16:32)
--- NOTE | 2019-10-03 18:20 | Consultation ---
History of Present Illness Consult date: 10/03/19 Chief complaint: unresponsive History of present illness: This is a 69 YO F with asystole after receiving conscious sedation at the vascular surgeon's office for a procedure. Unclear how long before ROSC. NO family at bedside. On my arrival pt is not on sedation, intubated and not breathing over the ventilator. Past History Past Medical History: other (HTN, DM) Past Surgical History: Other (Cath with stent placement) Social history: , lives with family. denies: smoking, alcohol abuse, prescription drug abuse Family history: diabetes, hypertension Medications and Allergies Allergies Allergy/AdvReac Type Severity Reaction Status Date / Time Unable to Assess Allergy Unverified 10/02/19 15:47 Active Meds: Active Medications Acetaminophen (Tylenol) 650 mg OR Q6HR PRN PRN Reason: Fever >101 Famotidine (Pepcid) 20 mg IV DAILY [facility]UR[facility] Last Admin: 10/03/19 16:52 Dose: 20 mg Documented by: Norepinephrine (Levophed Drip 4 Mg/Ns 250 Ml) 4 mg in 250 mls @ 7.5 mls/hr IV TITR [facility]; Protocol Last Admin: 10/03/19 15:03 Dose: 15 mcg/min, 56.25 mls/hr Documented by: Levofloxacin/Dextrose (Levaquin 750mg/150ml) 750 mg in 150 mls @ 100 mls/hr IV Q48HR [facility]; Protocol Last Admin: 10/03/19 12:28 Dose: 100 mls/hr Documented by: Sodium Bicarbonate 150 meq/ (Sterile Water) 1,150 mls @ 150 mls/hr IV DIRECT [facility]URUS Vasopressin 20 unit/ Sodium (Chloride) 101 mls @ 9.09 mls/hr IV TITR [facility]URUS; Protocol Pantoprazole Sodium 80 mg/ (Sodium Chloride) 100 mls @ 10 mls/hr IV DIRECT [facility] Insulin Human Lispro (Humalog) 0 unit SUB-Q Q6HR [facility]; Protocol Sodium Chloride (Sodium Chloride Flush Syringe 10 Ml) 10 ml IV BID [facility]US Last Admin: 10/03/19 16:32 Dose: Not Given Documented by: Sodium Chloride (Sodium Chloride Flush Syringe 10 Ml) 10 ml IV PRN PRN PRN Reason: LINE FLUSH Review of Systems ROS unobtainable: due to mental status Physical Examination - Vital Signs Vital Signs: Vital Signs Pulse BP Pulse Ox 107 H 110/68 100 10/02/19 15:37 10/02/19 15:37 10/02/19 15:37 - Constitutional General appearance: comfortable - EENT EENT: Present: mucous membranes moist - Respiratory Respiratory: Present: lungs clear - Cardiovascular Cardiovascular: Present: regular rate - Gastrointestinal Gastrointestinal: Present: normoactive bowel sounds - Neurologic Cranial nerve examination: other (pupils fixed and dilated, no corneals, no EOMI with [place]) Speech examination: other (intubated) Detailed motor examination: other (no movement, decreased tone) Results - Laboratory Findings CBC and BMP: 10/03/19 04:05 10/03/19 04:05 Abnormal Lab Findings: Abnormal Labs 10/02/19 10/02/19 10/02/19 15:42 15:42 15:42 WBC 13.4 H RBC 3.01 L Hgb 8.6 L Hct 27.2 L RDW 16.3 H Seg Neuts % (Manual) 73.0 H Lymphocytes % (Manual) Seg Neutrophils # Man 9.8 H Lymphocytes # (Manual) PT 15.9 H INR 1.25 H APTT 70.6 H* POC ABG pH ABG pH POC ABG pCO2 POC ABG pO2 ABG pO2 ABG HCO3 ABG Base Excess ABG Hemoglobin Potassium 3.3 L Carbon Dioxide 15 L BUN Creatinine 1.7 H Glucose 258 H POC Glucose Lactic Acid Calcium AST 89 H ALT Total Creatine Kinase 139 H CK-MB (CK-2) CK-MB (CK-2) Rel Index Troponin T Total Protein 5.8 L Albumin 2.8 L 10/02/19 10/02/19 10/02/19 16:14 17:00 17:07 WBC RBC Hgb Hct RDW Seg Neuts % (Manual) Lymphocytes % (Manual) Seg Neutrophils # Man Lymphocytes # (Manual) PT INR APTT POC ABG pH 7.139 L ABG pH POC ABG pCO2 57.6 H POC ABG pO2 292 H ABG pO2 ABG HCO3 ABG Base Excess ABG Hemoglobin Potassium Carbon Dioxide BUN Creatinine Glucose POC Glucose Lactic Acid 8.40 H* Calcium AST ALT Total Creatine Kinase 174 H CK-MB (CK-2) 4.1 H CK-MB (CK-2) Rel Index Troponin T 0.105 H* D Total Protein Albumin 10/02/19 10/02/19 10/02/19 19:07 20:03 22:30 WBC RBC Hgb Hct RDW Seg Neuts % (Manual) Lymphocytes % (Manual) Seg Neutrophils # Man Lymphocytes # (Manual) PT INR APTT POC ABG pH 7.312 L ABG pH POC ABG pCO2 33.2 L POC ABG pO2 66 L ABG pO2 ABG HCO3 ABG Base Excess ABG Hemoglobin Potassium Carbon Dioxide BUN Creatinine Glucose POC Glucose Lactic Acid 10.50 H* Calcium AST ALT Total Creatine Kinase 342 H CK-MB (CK-2) 16.0 H CK-MB (CK-2) Rel Index 4.6 H Troponin T 0.673 H* D Total Protein Albumin 10/02/19 10/02/19 10/03/19 22:30 23:19 01:15 WBC RBC Hgb Hct RDW Seg Neuts % (Manual) Lymphocytes % (Manual) Seg Neutrophils # Man Lymphocytes # (Manual) PT INR APTT POC ABG pH ABG pH 7.193 L* POC ABG pCO2 POC ABG pO2 ABG pO2 137.8 H ABG HCO3 13.5 L ABG Base Excess -13.6 L ABG Hemoglobin 8.7 L Potassium Carbon Dioxide BUN Creatinine Glucose POC Glucose Lactic Acid 12.30 H* 11.70 H* Calcium AST ALT Total Creatine Kinase CK-MB (CK-2) CK-MB (CK-2) Rel Index Troponin T Total Protein Albumin 10/03/19 10/03/19 10/03/19 04:05 04:05 04:05 WBC 17.3 H RBC 2.93 L Hgb 8.4 L Hct 26.3 L RDW 16.3 H Seg Neuts % (Manual) 96.0 H Lymphocytes % (Manual) 2.0 L Seg Neutrophils # Man 16.6 H Lymphocytes # (Manual) 0.3 L PT INR APTT POC ABG pH ABG pH POC ABG pCO2 POC ABG pO2 ABG pO2 ABG HCO3 ABG Base Excess ABG Hemoglobin Potassium Carbon Dioxide 18 L BUN 25 H Creatinine 2.4 H Glucose 319 H POC Glucose Lactic Acid 9.30 H* Calcium 7.6 L AST 152 H ALT 63 H Total Creatine Kinase CK-MB (CK-2) CK-MB (CK-2) Rel Index Troponin T Total Protein 5.7 L Albumin 2.8 L 10/03/19 10/03/19 12:52 17:22 WBC RBC Hgb Hct RDW Seg Neuts % (Manual) Lymphocytes % (Manual) Seg Neutrophils # Man Lymphocytes # (Manual) PT INR APTT POC ABG pH ABG pH POC ABG pCO2 POC ABG pO2 ABG pO2 ABG HCO3 ABG Base Excess ABG Hemoglobin Potassium Carbon Dioxide BUN Creatinine Glucose POC Glucose 369 H 372 H Lactic Acid Calcium AST ALT Total Creatine Kinase CK-MB (CK-2) CK-MB (CK-2) Rel Index Troponin T Total Protein Albumin - Diagnostic Findings Additional findings: CT scan brain with diffuse edema Assessment and Plan This is a 69 YO F with cardiac arrest and encephalopathy, likely anoxia. REcommend: EEG MRI Brain Poor prognosis. GAther additional test results and at that point can talk to family regarding prognosis and next steps. Continue care for all medical issues as you are doing
[2019-10-03 19:51] LABS: Hematocrit 27.5 % (30.3-42.9); Hemoglobin 8.9 gm/dl (10.1-14.3); Mean Corpuscular HGB Conc 32 % (30-34); Mean Corpuscular Volume 89 fl (79-97); Platelet Count 230 K/mm3 (140-440); Red Blood Count 3.11 M/mm3 (3.65-5.03); Red Cell Distribution Width 16.2 % (13.2-15.2)
[2019-10-03 20:01] LABS: Albumin 2.8 g/dL (3.9-5); Calcium 8.6 mg/dL (8.4-10.2)
[2019-10-03 20:41] LABS: Basophils % (Manual) 0 % (0.0-1.8); Eosinophils % (Manual) 0 % (0.0-4.3); Platelet Estimate Consistent w Auto; Total Cells Counted 100
[2019-10-03 20:42] LABS: Anisocytosis 1+; Crenated RBC Few; Ovalocytes Few
[2019-10-03] MEDS ORDERED: PANTOPRAZOLE 40 MG INJ IV SCH (22:00)
[2019-10-03] MEDS: INSULIN LISPRO 100 UNIT/ML SUB-Q SCH (22:38)
[2019-10-03] MEDS: PANTOPRAZOLE 80 MG in SODIUM CHLORIDE 0.9% 100 ML IV SCH (22:55)
[2019-10-03] MEDS: SODIUM BICARBONATE 150 MEQ in WATER FOR INJECTION (PF) 1,000 ML IV SCH (23:55)
[2019-10-04 01:14] LABS: Hematocrit 23.4 % (30.3-42.9); Hemoglobin 7.7 gm/dl (10.1-14.3)
[2019-10-04] MEDS: INSULIN LISPRO 100 UNIT/ML SUB-Q SCH ×2 (03:10→07:40)
[2019-10-04 05:04] LABS: Hematocrit 22.9 % (30.3-42.9); Hemoglobin 7.6 gm/dl (10.1-14.3); Mean Corpuscular HGB Conc 33 % (30-34); Mean Corpuscular Volume 85 fl (79-97); Platelet Count 190 K/mm3 (140-440); Red Blood Count 2.69 M/mm3 (3.65-5.03); Red Cell Distribution Width 16.3 % (13.2-15.2)
[2019-10-04 05:21] LABS: Albumin 2.4 g/dL (3.9-5); Calcium 8.3 mg/dL (8.4-10.2)
[2019-10-04 05:57] LABS: Anisocytosis Few; Basophils % (Manual) 0 % (0.0-1.8); Eosinophils % (Manual) 0 % (0.0-4.3); Ovalocytes Few; Total Cells Counted 100
[2019-10-04 05:58] LABS: Large Platelets Few
[2019-10-04 05:59] LABS: Platelet Estimate Consistent w Auto
[2019-10-04] MEDS ORDERED: INSULIN LISPRO 100 UNIT/ML SUB-Q ONE (06:17)
[2019-10-04] MEDS: PANTOPRAZOLE 80 MG in SODIUM CHLORIDE 0.9% 100 ML IV SCH (07:19)
[2019-10-04] MEDS: SODIUM BICARBONATE 150 MEQ in WATER FOR INJECTION (PF) 1,000 ML IV SCH (07:20)
--- NOTE | 2019-10-04 07:24 | Event Note ---
Date: 10/04/19 19-year-old -[place] female who is been on admission for sepsis, anoxic brain injury, encephalopathy. A CODE BLUE was called and patient as she had lost a pulse. CPR was started according to ACLS protocol. She was found to be in V. tach and later on was having a rhythm consistent with torsades. She had multiple rounds of defibrillation. She also had IV magnesium.. She continued to have chest compressions and a IV epinephrine with successful return of her pulse and rhythm consistent with sinus tachycardia Family members were notified of the change in condition. We will continue to monitor closely in the intensive care unit. We will sign off to the incoming hospitalist for further management.
--- NOTE | 2019-10-04 08:26 | Progress Note ---
Assessment and Plan Assessment and plan: -- Cardiac arrest [multiple episodes] Status: Acute s/p CRR per ACLS protocol Refer to the code sheets Continue ventilatory support Family requested DO NOT RESUSCITATE status --Severe anoxic brain injury Status: Acute 0nCT head, neurology evaluated the patient Recommended a moderate EEG --Hypomagnesemia/hypophosphatemia IV Magnesium sulfate, K-Phos, follow electrolytes --Acute hypoxic respiratory failure. Status: Acute Status post intubation on mechanical ventilation. patient is not on SEDATION --Severe GI bleeding : Status: Acute N.p.o., IV Protonix, GI noted the patient Significant drop in H&H, transfuse as needed However family/son did not want blood transfusion, --Possible Sepsis/lactic acidosis Status: Acute Follow cultures, empiric antibiotics --LYNDSAY (acute kidney injury) Status: Acute Worsening renal function Vasomotor nephropathy , prerenal. IVF resuscitation therapy, avoid nephrotoxins, Monitor renal function , nephrology following --Shock/hypotension: Possible septic shock continue vasopressors, IV fluids, empiric antibiotics --H/O CAD s/p PCI Continue appropriate cardiac medications, cardiology following, echocardiogram for LV function --Non-ST elevation NC; Management per cardiology --Metabolic acidosis Status: Acute IV bicarbonate therapy, serial bmp, supportive care, serial lactic acid level. -- DVT prophylaxis Status: Acute SCD to BLE while in bed, --DO NOT RESUSCITATE Patient is critically ill, with very poor prognosis Severe anoxic encephalopathy Family aware of patient's condition and the poor prognosis Critical care time 40 minutes History Interval history: Patient Seen and examined medical records reviewed Overnight events noted, Discussed with night covering hospitalist Patient had cardiac arrest Patient had cardiac arrest, s/p CPR per ACLS protocol, Please refer to CODE sheet, later the family decided DO NOT RESUSCITATE status And signed the necessary documents. Remains intubated on ventilatory support, not on sedation Unresponsive, absent pupillary, corneal reflexes Pupils dilated and fixed, and anoxic brain. Injury Continues to have coffee ground emesis, mild drop in H&H Hypotensive on Levothroid, critically ill, poor prognosis Multiple family members at the bedside Vital signs noted Hospitalist Physical - Constitutional Vitals: Temp Pulse Resp BP Pulse Ox 98.1 F 123 H 18 133/68 100 10/04/19 04:18 10/04/19 06:15 10/04/19 06:15 10/04/19 06:15 10/04/19 06:15 General appearance: Present: no acute distress, well-nourished, other (Intubated on vent, ) - EENT Eyes: Absent: scleral icterus (Absent Pupillary and Corneal Reflexes, pupils dilated and fixed) - Neck Neck: Present: supple, normal ROM - Respiratory Respiratory effort: normal Respiratory: bilateral: diminished, rhonchi, negative: rales, wheezing - Cardiovascular Rhythm: regular Heart Sounds: Present: S1 & S2 - Extremities Extremities: no ischemia, No edema - Abdominal General gastrointestinal: soft, non-tender, non-distended, normal bowel sounds - Integumentary Integumentary: Present: clear, warm - Psychiatric Psychiatric: other (unresponsive) - Neurologic Neurologic: other (unresponsive) Results - Labs CBC & Chem 7: 10/04/19 04:01 10/04/19 04:01 Labs: Laboratory Last Values WBC 14.2 K/mm3 (4.5-11.0) H 10/04/19 04:01 RBC 2.69 M/mm3 (3.65-5.03) L 10/04/19 04:01 Hgb 7.6 gm/dl (10.1-14.3) L 10/04/19 04:01 Hct 22.9 % (30.3-42.9) L 10/04/19 04:01 MCV 85 fl (79-97) 10/04/19 04:01 MCH 28 pg (28-32) 10/04/19 04:01 MCHC 33 % (30-34) 10/04/19 04:01 RDW 16.3 % (13.2-15.2) H 10/04/19 04:01 Plt Count 190 K/mm3 (140-440) 10/04/19 04:01 Add Manual Diff Complete 10/04/19 04:01 Total Counted 100 10/04/19 04:01 Seg Neutrophils % Breast Splitter 10/04/19 04:01 Seg Neuts % (Manual) 97.0 % (40.0-70.0) H 10/04/19 04:01 Band Neutrophils % 0 % 10/04/19 04:01 Lymphocytes % (Manual) 1.0 % (13.4-35.0) L 10/04/19 04:01 Reactive Lymphs % (Man) 0 % 10/04/19 04:01 Monocytes % (Manual) 2.0 % (0.0-7.3) 10/04/19 04:01 Eosinophils % (Manual) 0 % (0.0-4.3) 10/04/19 04:01 Basophils % (Manual) 0 % (0.0-1.8) 10/04/19 04:01 Metamyelocytes % 0 % 10/04/19 04:01 Myelocytes % 0 % 10/04/19 04:01 Promyelocytes % 0 % 10/04/19 04:01 Blast Cells % 0 % 10/04/19 04:01 Nucleated RBC % 1.0 % (0.0-0.9) H 10/04/19 04:01 Seg Neutrophils # Man 13.8 K/mm3 (1.8-7.7) H 10/04/19 04:01 Band Neutrophils # 0.0 K/mm3 10/04/19 04:01 Lymphocytes # (Manual) 0.1 K/mm3 (1.2-5.4) L 10/04/19 04:01 Abs React Lymphs (Man) 0.0 K/mm3 10/04/19 04:01 Monocytes # (Manual) 0.3 K/mm3 (0.0-0.8) 10/04/19 04:01 Eosinophils # (Manual) 0.0 K/mm3 (0.0-0.4) 10/04/19 04:01 Basophils # (Manual) 0.0 K/mm3 (0.0-0.1) 10/04/19 04:01 Metamyelocytes # 0.0 K/mm3 10/04/19 04:01 Myelocytes # 0.0 K/mm3 10/04/19 04:01 Promyelocytes # 0.0 K/mm3 10/04/19 04:01 Blast Cells # 0.0 K/mm3 10/04/19 04:01 WBC Morphology Not Reportable 10/04/19 04:01 Hypersegmented Neuts Not Reportable 10/04/19 04:01 Hyposegmented Neuts Not Reportable 10/04/19 04:01 Hypogranular Neuts Not Reportable 10/04/19 04:01 Smudge Cells Not Reportable 10/04/19 04:01 Toxic Granulation Not Reportable 10/04/19 04:01 Toxic Vacuolation Not Reportable 10/04/19 04:01 Dohle Bodies Not Reportable 10/04/19 04:01 Pelger-Huet Anomaly Not Reportable 10/04/19 04:01 Wally Rods Not Reportable 10/04/19 04:01 Platelet Estimate Consistent w auto 10/04/19 04:01 Clumped Platelets Not Reportable 10/04/19 04:01 Plt Clumps, EDTA Not Reportable 10/04/19 04:01 Large Platelets Few 10/04/19 04:01 Giant Platelets Not Reportable 10/04/19 04:01 Platelet Satelliting Not Reportable 10/04/19 04:01 Plt Morphology Comment Not Reportable 10/04/19 04:01 RBC Morphology Not Reportable 10/04/19 04:01 Dimorphic RBCs Not Reportable 10/04/19 04:01 Polychromasia Not Reportable 10/04/19 04:01 Hypochromasia Not Reportable 10/04/19 04:01 Poikilocytosis Not Reportable 10/04/19 04:01 Anisocytosis Few 10/04/19 04:01 Microcytosis Not Reportable 10/04/19 04:01 Macrocytosis Not Reportable 10/04/19 04:01 Spherocytes Not Reportable 10/04/19 04:01 Pappenheimer Bodies Not Reportable 10/04/19 04:01 Sickle Cells Not Reportable 10/04/19 04:01 Target Cells Not Reportable 10/04/19 04:01 Tear Drop Cells Not Reportable 10/04/19 04:01 Ovalocytes Few 10/04/19 04:01 Helmet Cells Not Reportable 10/04/19 04:01 [place]oz[place] Bodies Not Reportable 10/04/19 04:01 [place] Rings Not Reportable 10/04/19 04:01 Diamond Cells Not Reportable 10/04/19 04:01 Bite Cells Not Reportable 10/04/19 04:01 Crenated Cell Not Reportable 10/04/19 04:01 Elliptocytes Not Reportable 10/04/19 04:01 Acanthocytes (Spur) Not Reportable 10/04/19 04:01 Rouleaux Not Reportable 10/04/19 04:01 Hemoglobin C Crystals Not Reportable 10/04/19 04:01 Schistocytes Not Reportable 10/04/19 04:01 Malaria parasites Not Reportable 10/04/19 04:01 Magnus Bodies Not Reportable 10/04/19 04:01 Hem Pathologist Commnt No 10/04/19 04:01 PT 15.9 Sec. (12.2-14.9) H 10/02/19 15:42 INR 1.25 (0.87-1.13) H 10/02/19 15:42 APTT 70.6 Sec. (24.2-36.6) H* 10/02/19 15:42 POC ABG pH 7.578 (7.35-7.45) H 10/04/19 06:29 ABG pH 7.193 pH Units (7.350-7.450) L* 10/03/19 01:15 POC ABG pCO2 29.7 (35-45) L 10/04/19 06:29 ABG pCO2 35.9 mm Hg 10/03/19 01:15 POC ABG pO2 144 (80-105) H 10/04/19 06:29 ABG pO2 137.8 mm Hg (80.0-90.0) H 10/03/19 01:15 POC ABG HCO3 27.7 (22-26 mml/L) 10/04/19 06:29 ABG HCO3 13.5 mmol/L (20.0-26.0) L 10/03/19 01:15 POC ABG Total CO2 29 (23-27mmol/L) 10/04/19 06:29 POC ABG O2 Sat 100 10/04/19 06:29 ABG O2 Saturation 98.3 % (95.0-99.0) 10/03/19 01:15 ABG O2 Content 12.2 (0.0-44) 10/03/19 01:15 POC ABG Base Excess 6 ((-2) - (+3)mmol/L) 10/04/19 06:29 ABG Base Excess -13.6 mmol/L (-2.0-3.0) L 10/03/19 01:15 ABG Hemoglobin 8.7 gm/dl (12.0-16.0) L 10/03/19 01:15 ABG Carboxyhemoglobin 1.2 % (0.0-5.0) 10/03/19 01:15 ABG Methemoglobin 0.4 % (0.0-1.5) 10/03/19 01:15 Oxyhemoglobin 96.8 % (95.0-99.0) 10/03/19 01:15 FiO2 100 % 10/04/19 06:29 Sodium 152 mmol/L (137-145) H 10/04/19 04:01 Potassium 3.6 mmol/L (3.6-5.0) 10/04/19 04:01 Chloride 113.4 mmol/L (98-107) H 10/04/19 04:01 Carbon Dioxide 25 mmol/L (22-30) 10/04/19 04:01 Anion Gap 17 mmol/L 10/04/19 04:01 BUN 31 mg/dL (7-17) H 10/04/19 04:01 Creatinine 2.9 mg/dL (0.7-1.2) H 10/04/19 04:01 Estimated GFR 19 ml/min 10/04/19 04:01 BUN/Creatinine Ratio 11 % 10/04/19 04:01 Glucose 343 mg/dL (65-100) H 10/04/19 04:01 POC Glucose 385 (70-105) H 10/04/19 05:17 Lactic Acid 9.30 mmol/L (0.7-2.0) H* 10/03/19 04:05 Calcium 8.3 mg/dL (8.4-10.2) L 10/04/19 04:01 Phosphorus 1.00 mg/dL (2.5-4.5) L 10/04/19 04:01 Magnesium 1.40 mg/dL (1.7-2.3) L 10/04/19 04:01 Total Bilirubin 0.60 mg/dL (0.1-1.2) 10/04/19 04:01 AST 178 units/L (5-40) H 10/04/19 04:01 ALT 56 units/L (7-56) 10/04/19 04:01 Alkaline Phosphatase 54 units/L (35-129) 10/04/19 04:01 Total Creatine Kinase 342 units/L (30-135) H 10/02/19 22:30 CK-MB (CK-2) 16.0 ng/mL (0.0-4.0) H 10/02/19 22:30 CK-MB (CK-2) Rel Index 4.6 (0-4) H 10/02/19 22:30 Troponin T 0.673 ng/mL (0.00-0.029) H* D 10/02/19 22:30 Total Protein 5.2 g/dL (6.3-8.2) L 10/04/19 04:01 Albumin 2.4 g/dL (3.9-5) L 10/04/19 04:01 Albumin/Globulin Ratio 0.9 % 10/04/19 04:01 Triglycerides 85 mg/dL (2-149) 10/02/19 17:07 Cholesterol 115 mg/dL (50-199) 10/02/19 17:07 LDL Cholesterol Direct 75 mg/dL (50-130) 10/02/19 17:07 HDL Cholesterol 46 mg/dL (40-59) 10/02/19 17:07 Cholesterol/HDL Ratio 2.50 % 10/02/19 17:07 Blood Type O POSITIVE 10/02/19 15:42 Antibody Screen Negative 10/02/19 15:42 Active Medications - Current Medications Current Medications: Generic Name Dose Route Start Last Admin Trade Name Freq PRN Reason Stop Dose Admin Acetaminophen 650 mg 10/02/19 17:01 Tylenol IA Q6HR PRN Fever >101 Norepinephrine 4 mg in 250 mls @ 7.5 mls/hr 10/02/19 17:00 10/04/19 05:15 Levophed Drip 4 Mg/Ns 250 Ml IV 20 mcg/min TITR TAURUS 75 mls/hr Titration Protocol 2 MCG/MIN Levofloxacin/Dextrose 750 mg in 150 mls @ 100 mls/hr 10/03/19 10:00 10/03/19 12:28 Levaquin 750mg/150ml IV 100 mls/hr Q48HR TAURUS Administration Protocol Sodium Bicarbonate 150 meq/ 1,150 mls @ 150 mls/hr 10/03/19 14:00 10/04/19 07:20 Sterile Water IV 150 mls/hr DIRECT TAURUS Administration Vasopressin 20 unit/ Sodium 101 mls @ 9.09 mls/hr 10/03/19 14:00 Chloride IV TITR TAURUS Protocol 0.03 UNITS/MIN Pantoprazole Sodium 80 mg/ 100 mls @ 10 mls/hr 10/03/19 17:00 10/04/19 07:19 Sodium Chloride IV 8 mg/hr DIRECT TAURUS 10 mls/hr Administration 8 MG/HR Insulin Human Lispro 0 unit 10/03/19 18:00 10/04/19 07:40 Humalog SUB-Q Not Given Q6HR TAURUS Protocol Sodium Chloride 10 ml 10/02/19 22:00 10/03/19 22:34 Sodium Chloride Flush Syringe 10 Ml IV 10 ml BID TAURUS Administration Sodium Chloride 10 ml 10/02/19 17:01 Sodium Chloride Flush Syringe 10 Ml IV PRN PRN LINE FLUSH
[2019-10-04] MEDS ORDERED: MAGNESIUM SULFATE 3 GM in SODIUM CHLORIDE 0.9% 100 ML IV ONE (08:40)
[2019-10-04] MEDS ORDERED: POTASSIUM PHOSPHATE 40 MMOL in SODIUM CHLORIDE 0.9% 500 ML 500 ML IV ONE (08:40)
--- NOTE | 2019-10-04 09:36 | Gastroenterology Progress Note ---
Assessment and Plan GI: pt w/ noted CGE s/p multiple codes overnight - h/h has stayed stable overnight - overall prognosis grave - no plans to scope - continue current management - will follow Subjective Date of service: 10/04/19 Interval history: - events of overnight noted. Noted some coffee grounds in NG tube Objective - Exam Narrative Exam: intubated, sedated, NAD - Constitutional Vitals: Temp Pulse Resp BP Pulse Ox 98.1 F 94 H 18 116/55 99 10/04/19 04:18 10/04/19 08:39 10/04/19 06:15 10/04/19 08:39 10/04/19 08:39 - EENT Eyes: PERRL - Respiratory Respiratory: bilateral: rhonchi - Cardiovascular Rhythm: regular Heart Sounds: Present: S1 & S2 - Gastrointestinal General gastrointestinal: Present: soft, non-tender - Labs CBC & Chem 7: 10/04/19 04:01 10/04/19 04:01 Labs: Laboratory Results - last 24 hr 10/03/19 10/03/19 10/03/19 12:52 17:22 19:10 WBC 18.7 H RBC 3.11 L Hgb 8.9 L Hct 27.5 L MCV 89 MCH 29 MCHC 32 RDW 16.2 H Plt Count 230 Add Manual Diff Complete Total Counted 100 Seg Neutrophils % Director Of Channel Marketing Seg Neuts % (Manual) 93.0 H Band Neutrophils % 0 Lymphocytes % (Manual) 4.0 L Reactive Lymphs % (Man) 0 Monocytes % (Manual) 3.0 Eosinophils % (Manual) 0 Basophils % (Manual) 0 Metamyelocytes % 0 Myelocytes % 0 Promyelocytes % 0 Blast Cells % 0 Nucleated RBC % Not Reportable Seg Neutrophils # Man 17.4 H Band Neutrophils # 0.0 Lymphocytes # (Manual) 0.7 L Abs React Lymphs (Man) 0.0 Monocytes # (Manual) 0.6 Eosinophils # (Manual) 0.0 Basophils # (Manual) 0.0 Metamyelocytes # 0.0 Myelocytes # 0.0 Promyelocytes # 0.0 Blast Cells # 0.0 WBC Morphology Not Reportable Hypersegmented Neuts Not Reportable Hyposegmented Neuts Not Reportable Hypogranular Neuts Not Reportable Smudge Cells Not Reportable Toxic Granulation Not Reportable Toxic Vacuolation Not Reportable Dohle Bodies Not Reportable Pelger-Huet Anomaly Not Reportable Wally Rods Not Reportable Platelet Estimate Consistent w auto Clumped Platelets Not Reportable Plt Clumps, EDTA Not Reportable Large Platelets Not Reportable Giant Platelets Not Reportable Platelet Satelliting Not Reportable Plt Morphology Comment Not Reportable RBC Morphology Not Reportable Dimorphic RBCs Not Reportable Polychromasia Not Reportable Hypochromasia Not Reportable Poikilocytosis Not Reportable Anisocytosis 1+ Microcytosis Not Reportable Macrocytosis Not Reportable Spherocytes Not Reportable Pappenheimer Bodies Not Reportable Sickle Cells Not Reportable Target Cells Not Reportable Tear Drop Cells Not Reportable Ovalocytes Few Helmet Cells Not Reportable [place] Bodies Not Reportable [place] Rings Not Reportable Diamond Cells Not Reportable Bite Cells Not Reportable Crenated Cell Few Elliptocytes Not Reportable Acanthocytes (Spur) Not Reportable Rouleaux Not Reportable Hemoglobin C Crystals Not Reportable Schistocytes Not Reportable Malaria parasites Not Reportable Magnus Bodies Not Reportable Hem Pathologist Commnt No POC ABG pH POC ABG pCO2 POC ABG pO2 POC ABG HCO3 POC ABG Total CO2 POC ABG O2 Sat POC ABG Base Excess FiO2 Sodium Potassium Chloride Carbon Dioxide Anion Gap BUN Creatinine Estimated GFR BUN/Creatinine Ratio Glucose POC Glucose 369 H 372 H Calcium Phosphorus Magnesium Total Bilirubin AST ALT Alkaline Phosphatase Total Protein Albumin Albumin/Globulin Ratio 10/03/19 10/03/19 10/04/19 19:10 20:02 01:03 WBC RBC Hgb 7.7 L Hct 23.4 L MCV MCH MCHC RDW Plt Count Add Manual Diff Total Counted Seg Neutrophils % Seg Neuts % (Manual) Band Neutrophils % Lymphocytes % (Manual) Reactive Lymphs % (Man) Monocytes % (Manual) Eosinophils % (Manual) Basophils % (Manual) Metamyelocytes % Myelocytes % Promyelocytes % Blast Cells % Nucleated RBC % Seg Neutrophils # Man Band Neutrophils # Lymphocytes # (Manual) Abs React Lymphs (Man) Monocytes # (Manual) Eosinophils # (Manual) Basophils # (Manual) Metamyelocytes # Myelocytes # Promyelocytes # Blast Cells # WBC Morphology Hypersegmented Neuts Hyposegmented Neuts Hypogranular Neuts Smudge Cells Toxic Granulation Toxic Vacuolation Dohle Bodies Pelger-Huet Anomaly Wally Rods Platelet Estimate Clumped Platelets Plt Clumps, EDTA Large Platelets Giant Platelets Platelet Satelliting Plt Morphology Comment RBC Morphology Dimorphic RBCs Polychromasia Hypochromasia Poikilocytosis Anisocytosis Microcytosis Macrocytosis Spherocytes Pappenheimer Bodies Sickle Cells Target Cells Tear Drop Cells Ovalocytes Helmet Cells [place] Bodies [place] Rings Diamond Cells Bite Cells Crenated Cell Elliptocytes Acanthocytes (Spur) Rouleaux Hemoglobin C Crystals Schistocytes Malaria parasites Magnus Bodies Hem Pathologist Commnt POC ABG pH POC ABG pCO2 POC ABG pO2 POC ABG HCO3 POC ABG Total CO2 POC ABG O2 Sat POC ABG Base Excess FiO2 Sodium 147 H Potassium 4.1 Chloride 109.1 H Carbon Dioxide 20 L Anion Gap 22 BUN 31 H Creatinine 2.8 H Estimated GFR 20 BUN/Creatinine Ratio 11 Glucose 391 H POC Glucose 321 H Calcium 8.6 Phosphorus Magnesium 1.40 L Total Bilirubin 1.00 AST 226 H ALT 70 H Alkaline Phosphatase 64 Total Protein 6.2 L Albumin 2.8 L Albumin/Globulin Ratio 0.8 10/04/19 10/04/19 10/04/19 01:09 04:01 04:01 WBC 14.2 H RBC 2.69 L Hgb 7.6 L Hct 22.9 L MCV 85 MCH 28 MCHC 33 RDW 16.3 H Plt Count 190 Add Manual Diff Complete Total Counted 100 Seg Neutrophils % Director Of Channel Marketing Seg Neuts % (Manual) 97.0 H Band Neutrophils % 0 Lymphocytes % (Manual) 1.0 L Reactive Lymphs % (Man) 0 Monocytes % (Manual) 2.0 Eosinophils % (Manual) 0 Basophils % (Manual) 0 Metamyelocytes % 0 Myelocytes % 0 Promyelocytes % 0 Blast Cells % 0 Nucleated RBC % 1.0 H Seg Neutrophils # Man 13.8 H Band Neutrophils # 0.0 Lymphocytes # (Manual) 0.1 L Abs React Lymphs (Man) 0.0 Monocytes # (Manual) 0.3 Eosinophils # (Manual) 0.0 Basophils # (Manual) 0.0 Metamyelocytes # 0.0 Myelocytes # 0.0 Promyelocytes # 0.0 Blast Cells # 0.0 WBC Morphology Not Reportable Hypersegmented Neuts Not Reportable Hyposegmented Neuts Not Reportable Hypogranular Neuts Not Reportable Smudge Cells Not Reportable Toxic Granulation Not Reportable Toxic Vacuolation Not Reportable Dohle Bodies Not Reportable Pelger-[place]uet Anomaly Not Reportable Wally Rods Not Reportable Platelet Estimate Consistent w auto Clumped Platelets Not Reportable Plt Clumps, EDTA Not Reportable Large Platelets Few Giant Platelets Not Reportable Platelet Satelliting Not Reportable Plt Morphology Comment Not Reportable RBC Morphology Not Reportable Dimorphic RBCs Not Reportable Polychromasia Not Reportable Hypochromasia Not Reportable Poikilocytosis Not Reportable Anisocytosis Few Microcytosis Not Reportable Macrocytosis Not Reportable Spherocytes Not Reportable Pappenheimer Bodies Not Reportable Sickle Cells Not Reportable Target Cells Not Reportable Tear Drop Cells Not Reportable Ovalocytes Few Helmet Cells Not Reportable [place] Bodies Not Reportable [place] Rings Not Reportable [place] Cells Not Reportable Bite Cells Not Reportable Crenated Cell Not Reportable Elliptocytes Not Reportable Acanthocytes (Spur) Not Reportable Rouleaux Not Reportable Hemoglobin C Crystals Not Reportable Schistocytes Not Reportable Mal[place] parasites Not Reportable Magnus Bodies Not Reportable Hem Pathologist Commnt No POC ABG pH POC ABG pCO2 POC ABG pO2 POC ABG HCO3 POC ABG Total CO2 POC ABG O2 Sat POC ABG Base Excess FiO2 Sodium 152 H Potassium 3.6 Chloride 113.4 H Carbon Dioxide 25 Anion Gap 17 BUN 31 H Creatinine 2.9 H Estimated GFR 19 BUN/Creatinine Ratio 11 Glucose 343 H POC Glucose 378 H Calcium 8.3 L Phosphorus 1.00 L Magnesium 1.40 L Total Bilirubin 0.60 AST 178 H ALT 56 Alkaline Phosphatase 54 Total Protein 5.2 L Albumin 2.4 L Albumin/Globulin Ratio 0.9 10/04/19 10/04/19 05:17 06:29 WBC RBC Hgb Hct MCV MCH MCHC RDW Plt Count Add Manual Diff Total Counted Seg Neutrophils % Seg Neuts % (Manual) Band Neutrophils % Lymphocytes % (Manual) Reactive Lymphs % (Man) Monocytes % (Manual) Eosinophils % (Manual) Basophils % (Manual) Metamyelocytes % Myelocytes % Promyelocytes % Blast Cells % Nucleated RBC % Seg Neutrophils # Man Band Neutrophils # Lymphocytes # (Manual) Abs React Lymphs (Man) Monocytes # (Manual) Eosinophils # (Manual) Basophils # (Manual) Metamyelocytes # Myelocytes # Promyelocytes # Blast Cells # WBC Morphology Hypersegmented Neuts Hyposegmented Neuts Hypogranular Neuts Smudge Cells Toxic Granulation Toxic Vacuolation Dohle Bodies Pelger-Huet Anomaly Wally Rods Platelet Estimate Clumped Platelets Plt Clumps, EDTA Large Platelets Giant Platelets Platelet Satelliting Plt Morphology Comment RBC Morphology Dimorphic RBCs Polychromasia Hypochromasia Poikilocytosis Anisocytosis Microcytosis Macrocytosis Spherocytes Pappenheimer Bodies Sickle Cells Target Cells Tear Drop Cells Ovalocytes Helmet Cells [place] Bodies [place] Rings Diamond Cells Bite Cells Crenated Cell Elliptocytes Acanthocytes (Spur) Rouleaux Hemoglobin C Crystals Schistocytes Malaria parasites Magnus Bodies Hem Pathologist Commnt POC ABG pH 7.578 H POC ABG pCO2 29.7 L POC ABG pO2 144 H POC ABG HCO3 27.7 POC ABG Total CO2 29 POC ABG O2 Sat 100 POC ABG Base Excess 6 FiO2 100 Sodium Potassium Chloride Carbon Dioxide Anion Gap BUN Creatinine Estimated GFR BUN/Creatinine Ratio Glucose POC Glucose 385 H Calcium Phosphorus Magnesium Total Bilirubin AST ALT Alkaline Phosphatase Total Protein Albumin Albumin/Globulin Ratio
[2019-10-04] MEDS: NORepinephrine/NS 4 MG-250 ML 4 MG/250 ML BAG IV SCH (09:38)
--- NOTE | 2019-10-04 11:22 | Progress Note ---
Assessment and Plan 1. Status post cardiopulmonary arrest 2. Respiratory failure on mechanical ventilator 3. Post arrest anoxic and Follow-up with the 4. History of coronary artery disease status post PCI and stents to the LAD in 2016. 5. Essential hypertension 6. Hyperlipidemia Recent echocardiogram done in November 2018 showed normal left ventricular global function with LVEF of 55% Plan. Continue supportive cardiac care check echocardiogram. Subjective Date of service: 10/04/19 Interval history: Unresponsive on mechanical ventilator. Objective Vital Signs Temp Pulse Pulse Resp BP BP Pulse Ox 10/04/19 11:15 81 18 109/48 99 10/04/19 11:00 82 18 103/46 99 10/04/19 10:45 84 18 117/50 99 10/04/19 10:30 85 18 114/50 99 10/04/19 10:15 88 18 118/53 99 10/04/19 10:00 92 H 18 135/59 100 10/04/19 09:45 90 18 137/62 100 10/04/19 09:31 81 18 100/43 99 10/04/19 09:15 90 18 117/55 99 10/04/19 09:00 92 H 18 121/54 99 10/04/19 08:45 94 H 18 116/55 99 10/04/19 08:39 94 H 116/55 99 10/04/19 08:30 97 H 18 125/56 98 10/04/19 08:15 99 H 18 125/57 98 10/04/19 08:00 101 H 17 123/56 98 10/04/19 07:45 106 H 18 120/55 97 10/04/19 07:30 120 H 18 127/61 94 10/04/19 07:15 123 H 18 124/60 92 10/04/19 07:00 123 H 18 118/57 91 10/04/19 06:45 124 H 18 112/55 90 10/04/19 06:30 125 H 18 118/57 90 10/04/19 06:15 123 H 18 133/68 100 10/04/19 06:00 128 H 18 65/44 98 10/04/19 05:45 124 H 18 82/35 87 10/04/19 05:31 134 H 111 H 164/96 100 10/04/19 05:15 184 H 89 H 88/45 79 L 10/04/19 05:00 81 18 88/45 99 10/04/19 04:45 83 18 102/53 100 10/04/19 04:30 84 18 100/54 100 10/04/19 04:18 98.1 F 10/04/19 04:15 83 18 96/52 100 10/04/19 04:00 83 74 18 99/53 100 10/04/19 03:45 81 18 100/53 100 10/04/19 03:30 81 18 99/54 100 10/04/19 03:21 80 100/54 100 10/04/19 03:15 80 18 100/54 100 10/04/19 03:00 78 18 100/56 100 10/04/19 02:45 77 18 103/57 100 10/04/19 02:30 75 18 96/55 100 10/04/19 02:15 74 18 98/56 100 10/04/19 02:00 73 18 99/56 100 10/04/19 01:45 72 18 96/55 100 10/04/19 01:30 71 18 93/54 100 10/04/19 01:15 70 18 89/52 100 10/04/19 01:00 69 18 90/49 100 10/04/19 00:50 93.8 F L 10/04/19 00:45 71 18 101/55 100 10/04/19 00:41 98 H 114/73 98 10/04/19 00:30 73 18 107/57 100 10/04/19 00:19 93.8 F L 10/04/19 00:15 81 17 100/60 100 10/04/19 00:00 73 81 18 104/56 100 10/03/19 23:45 76 18 117/62 100 10/03/19 23:37 76 18 113/61 100 10/03/19 23:30 77 18 113/61 100 10/03/19 23:21 77 18 119/61 100 10/03/19 23:11 79 18 124/64 100 10/03/19 23:00 83 18 124/64 100 10/03/19 22:51 82 18 129/65 100 10/03/19 22:41 85 18 129/64 100 10/03/19 22:30 85 18 129/64 100 10/03/19 22:21 85 18 127/68 100 10/03/19 22:11 85 18 129/65 100 10/03/19 22:00 85 18 129/65 100 10/03/19 21:51 85 18 129/64 100 10/03/19 21:41 85 18 128/67 100 10/03/19 21:30 85 18 128/67 100 10/03/19 21:21 85 18 126/65 100 10/03/19 21:11 85 18 125/65 100 10/03/19 21:00 85 18 125/65 100 10/03/19 20:52 85 128/63 100 10/03/19 20:51 85 18 128/63 100 10/03/19 20:41 85 18 129/64 100 10/03/19 20:30 86 18 129/64 100 10/03/19 20:21 85 18 128/65 100 10/03/19 20:11 86 18 127/66 100 10/03/19 20:00 86 85 18 125/65 100 10/03/19 19:51 86 18 127/66 100 10/03/19 19:41 85 18 124/66 100 10/03/19 19:31 97.4 F L 10/03/19 19:30 85 18 124/66 100 10/03/19 19:21 84 18 106/60 100 10/03/19 19:11 85 18 123/66 100 10/03/19 19:00 85 18 123/66 100 10/03/19 18:51 85 18 127/64 99 10/03/19 18:41 85 18 128/62 99 10/03/19 18:30 84 18 128/62 99 10/03/19 18:21 84 18 126/64 99 10/03/19 18:14 155 H 30 H 10/03/19 18:11 84 18 123/65 99 10/03/19 18:00 84 18 123/65 99 10/03/19 17:56 84 125/62 99 10/03/19 17:51 83 18 125/62 99 10/03/19 17:41 84 18 126/64 99 10/03/19 17:30 84 18 126/64 99 10/03/19 17:21 83 18 122/63 99 10/03/19 17:11 83 18 123/63 99 10/03/19 17:00 83 18 123/63 99 10/03/19 16:51 82 18 100 10/03/19 16:41 82 18 100 10/03/19 16:31 82 18 100 10/03/19 16:21 82 18 100 10/03/19 16:11 83 18 99 10/03/19 16:01 83 18 99 10/03/19 16:00 84 18 99 10/03/19 15:51 84 18 99 10/03/19 15:41 84 18 99 10/03/19 15:31 84 18 99 10/03/19 15:20 85 15 99 10/03/19 15:18 85 18 99 10/03/19 14:12 91 H 18 111/53 99 10/03/19 14:10 92 H 18 111/50 99 10/03/19 14:00 93 H 18 114/52 99 10/03/19 13:55 91 H 15 103/49 99 10/03/19 13:50 90 30 H 96/48 98 10/03/19 13:45 91 H 30 H 92/45 98 10/03/19 13:40 94 H 30 H 89/43 98 10/03/19 13:35 97 H 30 H 99/47 99 10/03/19 13:30 98 H 30 H 93/45 99 10/03/19 13:25 98 H 30 H 77/37 98 10/03/19 13:20 101 H 30 H 74/38 98 10/03/19 13:15 110 H 30 H 89/44 99 10/03/19 13:10 116 H 30 H 84/43 98 10/03/19 13:05 129 H 29 H 80/42 97 10/03/19 13:00 131 H 30 H 103/47 96 10/03/19 12:56 139 H 30 H 117/54 96 10/03/19 12:50 151 H 10 L 124/61 97 10/03/19 12:46 53 H 90/41 10/03/19 12:40 177 H 20 90/41 10/03/19 12:35 88 30 H 92/44 99 10/03/19 12:30 92 H 30 H 110/54 100 10/03/19 12:27 96 H 30 H 136/67 100 10/03/19 12:25 30 H 136/67 100 10/03/19 12:20 16 90/41 100 10/03/19 12:10 90 29 H 90/41 99 10/03/19 12:07 91 H 83/44 99 10/03/19 12:05 92 H 30 H 79/44 99 10/03/19 12:00 93 H 30 H 91/46 99 10/03/19 11:55 98 H 30 H 91/43 98 10/03/19 11:50 99 H 30 H 83/42 97 10/03/19 11:46 101 H 15 77/46 98 10/03/19 11:40 104 H 11 L 117/49 97 10/03/19 11:36 107 H 8 L 117/49 98 10/03/19 11:30 109 H 23 117/49 100 10/03/19 11:26 109 H 17 121/54 99 10/03/19 11:20 111 H 16 126/62 100 - Physical Examination General: Other (Intubated and unresponsive) HEENT: Positive: PERRL, Normocephaly, Mucus Membranes Moist Neck: Positive: neck supple, trachea midline. Negative: JVD/HJR Cardiac: Positive: Reg Rate and Rhythm, Regular Rate, S1/S2, PMI, Laterally Displaced Lungs: Positive: clear to auscultation, No Wheeze, Rales, Rhonchi Neuro: Positive: Other (Intubated and unresonsive) - Labs and Meds Cardiac Enzymes 10/03/19 10/04/19 Range/Units 19:10 04:01 AST 226 H 178 H (5-40) units/L CBC 10/03/19 10/04/19 10/04/19 Range/Units 19:10 01:03 04:01 WBC 18.7 H 14.2 H (4.5-11.0) K/mm3 RBC 3.11 L 2.69 L (3.65-5.03) M/mm3 Hgb 8.9 L 7.7 L 7.6 L (10.1-14.3) gm/dl Hct 27.5 L 23.4 L 22.9 L (30.3-42.9) % Plt Count 230 190 (140-440) K/mm3 Comprehensive Metabolic Panel 10/03/19 10/04/19 Range/Units 19:10 04:01 Sodium 147 H 152 H (137-145) mmol/L Potassium 4.1 3.6 (3.6-5.0) mmol/L Chloride 109.1 H 113.4 H (98-107) mmol/L Carbon Dioxide 20 L 25 (22-30) mmol/L BUN 31 H 31 H (7-17) mg/dL Creatinine 2.8 H 2.9 H (0.7-1.2) mg/dL Glucose 391 H 343 H (65-100) mg/dL Calcium 8.6 8.3 L (8.4-10.2) mg/dL AST 226 H 178 H (5-40) units/L ALT 70 H 56 (7-56) units/L Alkaline Phosphatase 64 54 (35-129) units/L Total Protein 6.2 L 5.2 L (6.3-8.2) g/dL Albumin 2.8 L 2.4 L (3.9-5) g/dL
--- NOTE | 2019-10-04 12:22 | Event Note ---
Date: 10/04/19 Multiple family members at the bedside. Decided to withdraw care,Family members had lot of questions answered all of them.they signed withdrawal of care documents Set up for withdrawal at 1pm today
--- NOTE | 2019-10-04 12:53 | Progress Note ---
Subjective Interval history: Patient was seen today for follow-up on multiple renal related issues Events of this hospitalization were noted patient is doing very poorly ultiple family members at bedside Has coded intubated Interdisciplinary notes were also reviewed Vitals intake output medications were reviewed Past medical history: Reviewed Family, social history: Reviewed Allergies: Reviewed Physical examination General: No acute distress Vitals: Reviewed HEENT: Oral mucosa moist no icterus Neck: Supple no thyromegaly nodular mass or JVD Chest: Clear to auscultation anteriorly Heart: Regular rate and rhythm S1-S2 heard no S3-S4 Abdomen: Soft nontender no suprapubic masses no organomegaly Extremity: Dry skin less than 1+ edema Psych: No evidence of any agitation and aggression noted Derm: No petechial rash Assessment and plan: Acute renal failure, renal function relatively stable creatinine currently 2.9 bicarbonate better 25 Mild hypernatremia sodium currently 152, Multiorgan failure cardiac arrest possible anoxic brain injury family is aware of the poor prognosis/ high likelihood of they're aware and very underst anding of the overall health situation Dialysis alone is not going to change the outcome and has not required right now We will await further disciplines/ amily may consider withdrawal of support discussed at the bedside Objective - Vital Signs Vital signs: Vital Signs - 12hr 10/04/19 10/04/19 10/04/19 01:00 01:15 01:30 Temperature Pulse Rate 69 70 71 Pulse Rate [ From Monitor] Respiratory 18 18 18 Rate Blood Pressure 90/49 89/52 93/54 O2 Sat by Pulse 100 100 100 Oximetry 10/04/19 10/04/19 10/04/19 01:45 02:00 02:15 Temperature Pulse Rate 72 73 74 Pulse Rate [ From Monitor] Respiratory 18 18 18 Rate Blood Pressure 96/55 99/56 98/56 O2 Sat by Pulse 100 100 100 Oximetry 10/04/19 10/04/19 10/04/19 02:30 02:45 03:00 Temperature Pulse Rate 75 77 78 Pulse Rate [ From Monitor] Respiratory 18 18 18 Rate Blood Pressure 96/55 103/57 100/56 O2 Sat by Pulse 100 100 100 Oximetry 10/04/19 10/04/19 10/04/19 03:15 03:21 03:30 Temperature Pulse Rate 80 80 81 Pulse Rate [ From Monitor] Respiratory 18 18 Rate Blood Pressure 100/54 100/54 99/54 O2 Sat by Pulse 100 100 100 Oximetry 10/04/19 10/04/19 10/04/19 03:45 04:00 04:15 Temperature Pulse Rate 81 83 83 Pulse Rate [ 74 From Monitor] Respiratory 18 18 18 Rate Blood Pressure 100/53 99/53 96/52 O2 Sat by Pulse 100 100 100 Oximetry 10/04/19 10/04/19 10/04/19 04:18 04:30 04:45 Temperature 98.1 F Pulse Rate 84 83 Pulse Rate [ From Monitor] Respiratory 18 18 Rate Blood Pressure 100/54 102/53 O2 Sat by Pulse 100 100 Oximetry 10/04/19 10/04/19 10/04/19 05:00 05:15 05:31 Temperature Pulse Rate 81 184 H 134 H Pulse Rate [ From Monitor] Respiratory 18 89 H 111 H Rate Blood Pressure 88/45 88/45 164/96 O2 Sat by Pulse 99 79 L 100 Oximetry 10/04/19 10/04/19 10/04/19 05:45 06:00 06:15 Temperature Pulse Rate 124 H 128 H 123 H Pulse Rate [ From Monitor] Respiratory 18 18 18 Rate Blood Pressure 82/35 65/44 133/68 O2 Sat by Pulse 87 98 100 Oximetry 10/04/19 10/04/19 10/04/19 06:30 06:45 07:00 Temperature Pulse Rate 125 H 124 H 123 H Pulse Rate [ From Monitor] Respiratory 18 18 18 Rate Blood Pressure 118/57 112/55 118/57 O2 Sat by Pulse 90 90 91 Oximetry 10/04/19 10/04/19 10/04/19 07:15 07:30 07:45 Temperature Pulse Rate 123 H 120 H 106 H Pulse Rate [ From Monitor] Respiratory 18 18 18 Rate Blood Pressure 124/60 127/61 120/55 O2 Sat by Pulse 92 94 97 Oximetry 10/04/19 10/04/19 10/04/19 08:00 08:15 08:30 Temperature Pulse Rate 101 H 99 H 97 H Pulse Rate [ From Monitor] Respiratory 17 18 18 Rate Blood Pressure 123/56 125/57 125/56 O2 Sat by Pulse 98 98 98 Oximetry 10/04/19 10/04/19 10/04/19 08:39 08:45 09:00 Temperature Pulse Rate 94 H 94 H 92 H Pulse Rate [ From Monitor] Respiratory 18 18 Rate Blood Pressure 116/55 116/55 121/54 O2 Sat by Pulse 99 99 99 Oximetry 10/04/19 10/04/19 10/04/19 09:15 09:31 09:45 Temperature Pulse Rate 90 81 90 Pulse Rate [ From Monitor] Respiratory 18 18 18 Rate Blood Pressure 117/55 100/43 137/62 O2 Sat by Pulse 99 99 100 Oximetry 10/04/19 10/04/19 10/04/19 10:00 10:15 10:30 Temperature Pulse Rate 92 H 88 85 Pulse Rate [ From Monitor] Respiratory 18 18 18 Rate Blood Pressure 135/59 118/53 114/50 O2 Sat by Pulse 100 99 99 Oximetry 10/04/19 10/04/19 10/04/19 10:45 11:00 11:15 Temperature Pulse Rate 84 82 81 Pulse Rate [ From Monitor] Respiratory 18 18 18 Rate Blood Pressure 117/50 103/46 109/48 O2 Sat by Pulse 99 99 99 Oximetry - Lab 10/04/19 04:01 10/04/19 04:01 Most recent lab results ABG pH 7.193 pH Units (7.350-7.450) L* 10/03/19 01:15 ABG pCO2 35.9 mm Hg 10/03/19 01:15 ABG pO2 137.8 mm Hg (80.0-90.0) H 10/03/19 01:15 ABG HCO3 13.5 mmol/L (20.0-26.0) L 10/03/19 01:15 ABG O2 Saturation 98.3 % (95.0-99.0) 10/03/19 01:15 Calcium 8.3 mg/dL (8.4-10.2) L 10/04/19 04:01 Phosphorus 1.00 mg/dL (2.5-4.5) L 10/04/19 04:01 Magnesium 1.40 mg/dL (1.7-2.3) L 10/04/19 04:01 Medications & Allergies - Medications Allergies/Adverse Reactions: Allergies Unable to Assess Allergy (Unverified 10/02/19 15:47) unable to assess Home Medications: Home Medications Medication Instructions Recorded Confirmed Last Taken Type Allopurinol [Zyloprim] 300 mg PO DAILY 10/03/19 10/03/19 Unknown History Famotidine [Pepcid] 40 mg PO BID 10/03/19 10/03/19 Unknown History Gabapentin 300 mg PO BID 10/03/19 10/03/19 Unknown History Latanoprost 0.005% 1 drop OU QHS 10/03/19 10/03/19 Unknown History Olmesartan Medoxomil 20 mg PO DAILY 10/03/19 10/03/19 Unknown History Active Medications: Generic Name Dose Route Start Last Admin Trade Name Freq PRN Reason Stop Dose Admin Acetaminophen 650 mg 10/02/19 17:01 Tylenol AK Q6HR PRN Fever >101 Norepinephrine 4 mg in 250 mls @ 7.5 mls/hr 10/02/19 17:00 10/04/19 11:01 Levophed Drip 4 Mg/Ns 250 Ml IV 12 mcg/min TITR TAURUS 45 mls/hr Titration Protocol 2 MCG/MIN Levofloxacin/Dextrose 750 mg in 150 mls @ 100 mls/hr 10/03/19 10:00 10/03/19 12:28 Levaquin 750mg/150ml IV 100 mls/hr Q48HR TAURUS Administration Protocol Sodium Bicarbonate 150 meq/ 1,150 mls @ 150 mls/hr 10/03/19 14:00 10/04/19 07:20 Sterile Water IV 150 mls/hr DIRECT TAURUS Administration Vasopressin 20 unit/ Sodium 101 mls @ 9.09 mls/hr 10/03/19 14:00 Chloride IV TITR TAURUS Protocol 0.03 UNITS/MIN Pantoprazole Sodium 80 mg/ 100 mls @ 10 mls/hr 10/03/19 17:00 10/04/19 07:19 Sodium Chloride IV 8 mg/hr DIRECT TAURUS 10 mls/hr Administration 8 MG/HR Potassium Phosphate 40 mmol/ 513.3333 mls @ 83 mls/hr 10/04/19 08:40 10/04/19 09:38 Sodium Chloride IV 10/04/19 14:51 83 mls/hr ONCE ONE Administration Insulin Human Lispro 0 unit 10/03/19 18:00 10/04/19 07:40 Humalog SUB-Q Not Given Q6HR TAURUS Protocol Sodium Chloride 10 ml 10/02/19 22:00 10/04/19 09:39 Sodium Chloride Flush Syringe 10 Ml IV 10 ml BID TAURUS Administration Sodium Chloride 10 ml 10/02/19 17:01 Sodium Chloride Flush Syringe 10 Ml IV PRN PRN LINE FLUSH
[2019-10-04 14:38] VITALS: BP 89/37
--- NOTE | 2019-10-04 15:19 | Event Note ---
Date: 10/04/19 Patient had withdrawal of care and was extubated as requested by the family At 2:15 PM today, patient at 2:40 PM today When I evaluated patient is unresponsive, pupils dilated and fixed, no cardiopulmonary activity Patient pronounced at 2:50 PM Time of 2:40 PM on 10/04/2019. Family members at the bedside
--- NOTE | 2019-10-04 15:22 | Death Summary ---
Summary - Providers Date of service: 10/04/19 Consults: 10/02/19 18:45 Consult to Physician [CONS] Routine Comment: Consulting Provider: LUZ CUMMINS Physician Instructions: Reason For Exam: Respiratory Failure, Cardiac Arrest 10/03/19 10:18 Consult to Physician [CONS] Routine Comment: Consulting Provider: SHERIF SMITH Physician Instructions: Reason For Exam: Acute kidney injury 10/03/19 12:56 Consult to Physician [CONS] Urgent Comment: Consulting Provider: ELIZABETH SCALES Physician Instructions: Reason For Exam: cardiac arrest /Vtach 10/03/19 15:19 Consult to Physician [CONS] Urgent Comment: Consulting Provider: RIKY WYATT Physician Instructions: Reason For Exam: Severe GI bleeding 10/03/19 15:26 Consult to Physician [CONS] Routine Comment: Consulting Provider: DAKOTA RILEY Physician Instructions: Reason For Exam: anoxic brain injury/s/p cardiac arrest Attending: KASSIE MIRANDA - summary Date of admission: 10/02/19 17:01 Date of : 10/04/19 (at 2:40 Pm[14:40 hrs]) Significant findings: -- Cardiac arrest [multiple episodes] Status: Acute s/p CRR per ACLS protocol Refer to the code sheets Continue ventilatory support Family requested DO NOT RESUSCITATE status --Severe anoxic brain injury Status: Acute 0nCT head, neurology evaluated the patient Recommended a moderate EEG --Hypomagnesemia/hypophosphatemia IV Magnesium sulfate, K-Phos, follow electrolytes --Acute hypoxic respiratory failure. Status: Acute Status post intubation on mechanical ventilation. patient is not on SEDATION --Severe GI bleeding : Status: Acute N.p.o., IV Protonix, GI noted the patient Significant drop in H&H, transfuse as needed However family/son did not want blood transfusion, --Possible Sepsis/lactic acidosis Status: Acute Follow cultures, empiric antibiotics --LYNDSAY (acute kidney injury) Status: Acute Worsening renal function Vasomotor nephropathy , prerenal. IVF resuscitation therapy, avoid nephrotoxins, Monitor renal function , nephrology following --Shock/hypotension: Possible septic shock continue vasopressors, IV fluids, empiric antibiotics --H/O CAD s/p PCI Continue appropriate cardiac medications, cardiology following, echocardiogram for LV function --Non-ST elevation OH; Management per cardiology --Metabolic acidosis Status: Acute IV bicarbonate therapy, serial bmp, supportive care, serial lactic acid level. -- DVT prophylaxis Status: Acute SCD to BLE while in bed, --DO NOT RESUSCITATE Patient is critically ill, with very poor prognosis Severe anoxic encephalopathy Family aware of patient's condition and the poor prognosis
== END 2019-10-04 16:00 | DRG 871 ==
LOC: ED 15:01 → CC1 17:01
PROVIDERS: ADMIT Internal Medicine; ATTEND Internal Medicine
PROC: 5A1945Z Respiratory Ventilation, 24-96 Consecutive Hours (ICD-10-PCS; principal; 2019-10-02)
PROC: 0BH17EZ Insertion of Endotracheal Airway into Trachea, Via Natural or Artificial Opening (ICD-10-PCS; 2019-10-02)
PROC: 06HY33Z Insertion of Infusion Device into Lower Vein, Percutaneous Approach (ICD-10-PCS; 2019-10-02)
PROC: B54BZZA Ultrasonography of Right Lower Extremity Veins, Guidance (ICD-10-PCS; 2019-10-02)
PROC: 4A033R1 Measurement of Arterial Saturation, Peripheral, Percutaneous Approach (ICD-10-PCS; 2019-10-02)
PROC: 5A12012 Performance of Cardiac Output, Single, Manual (ICD-10-PCS; 2019-10-02)
DX: A41.9 Sepsis, unspecified organism (principal); J96.01 Acute respiratory failure with hypoxia; N17.0 Acute kidney failure with tubular necrosis; I21.4 Non-ST elevation (NSTEMI) myocardial infarction; G93.41 Metabolic encephalopathy; K92.2 Gastrointestinal hemorrhage, unspecified; E87.0 Hyperosmolality and hypernatremia; G93.1 Anoxic brain damage, not elsewhere classified; Z66 Do not resuscitate; S06.9X0A Unspecified intracranial injury without loss of consciousness, initial encounter; I46.9 Cardiac arrest, cause unspecified; E83.42 Hypomagnesemia; E83.39 Other disorders of phosphorus metabolism; D64.9 Anemia, unspecified; I25.10 Atherosclerotic heart disease of native coronary artery without angina pectoris; I10 Essential (primary) hypertension; E78.5 Hyperlipidemia, unspecified; E11.51 Type 2 diabetes mellitus with diabetic peripheral angiopathy without gangrene; E66.9 Obesity, unspecified; Z68.29 Body mass index [BMI] 29.0-29.9, adult; Y92.89 Other specified places as the place of occurrence of the external cause; Y93.89 Activity, other specified; Z82.49 Family history of ischemic heart disease and other diseases of the circulatory system; Z83.3 Family history of diabetes mellitus; Z95.5 Presence of coronary angioplasty implant and graft
CPT/HCPCS: 31500; 36415; 36600; 70450; 71045; 80053; 80061; 82140; 82550; 82553; 82803; 82962; 83735; 84100; 84484; 85007; 85014; 85018; 85025; 85610; 85730; 86850; 86900; 86901; 87040; 87070; 87205; 93005; 93010; 93306; 94002; 94003; 96365; 96367; 96375; 99292; G0378; C9113; J0282; J0692; J1815; J1956; J3475; J7030; J7040; J7060